=== PATIENT | female | born 1995 | race Caucasian/White ===

== ENCOUNTER 2020-06-19 11:29 | Emergency (ER) | payer OTHER, SELFPAY ==
[2020-06-19] VITALS (19 sets, daily range): BP systolic 124–149; BP diastolic 70–108; PULSE 92–109; RESP 15–23; TEMP 36.3; O2SAT 98–100
--- NOTE | ~2020-06-19 | XR_ITS ---
EXAMINATION: XR chest 1V INDICATION: Heart palpitations TECHNIQUE: PA view of the chest is obtained. COMPARISON: None available FINDINGS: There are minimal airspace opacities of the lung bases. No pleural effusion or pneumothorax is identified. The cardiomediastinal silhouette is stable. The visualized osseous structures are unr emarkable. IMPRESSION: 1. Minimal airspace opacities of the lung bases, consistent with atelectasis versus pneumonia. Reviewed, dictated and finalized at location A. L ENGINEER HELPER IMPRESSION: 1. Minimal airspace opacities of the lung bases, consistent with atelectasis ve rsus pneumonia.
--- NOTE | 2020-06-19 11:38 | ECG_ITS ---
Measurements Intervals [place] Rate: 108 P: 37 DC: 139 QRS: 2 QRSD: 86 T: 8 QT: 310 QTc: 416 Interpretive Statements SINUS TACHYCARDIA INCOMPLETE RIGHT BUNDLE BRANCH BLOCK BORDERLINE T WAVE ABNORMALITY- INFERIOR LEADS BASELINE ARTIFACT- I, V3 ABNORMAL ECG Electronically Signed On 06-19-2020 16:04:51 QUALITY INSPECTOR by Pietro Salgado D.O.
--- NOTE | 2020-06-19 12:08 | PC.NURSE ---
patient brought back to ED room 14 with c/o palpitations over the last month. see triage note. patient is alert. oriented. in room. patient is 24 weeks . has seen cardiology, OB and had labs done for these same symptoms. states her HR today has been 50-120.
[2020-06-19 12:11] LABS: Basophils Percent Auto 0.2 % (0.2-1.2); Eosinophils Absolute Auto 0.1 K/mm3 (0-0.3); Eosinophils Percent Auto 0.4 % (0-4.4); Hematocrit 32.8 % (37.0-47.0); Hemoglobin 10.8 g/dL (12.0-15.0); Immature Granulocyte Percent A 0.9 % (0-0.5); Lymphocytes Absolute Auto 1.73 K/mm3 (0.9-3.2); Lymphocytes Percent Auto 15.3 % (18.3-44.2); Mean Corpuscular HGB Conc 32.9 g/dl (32-36); Mean Corpuscular Hemoglobin 27.3 pg (26-34); Mean Corpuscular Volume 82.8 fl (80-100); Mean Platelet Volume 10.8 fl (7.4-10.4); Monocytes Absolute Auto 0.5 K/mm3 (0.1-0.6); Monocytes Percent Auto 4.3 % (2.6-8.5); Neutrophils Absolute Auto 8.9 K/mm3 (1.3-6.7); Neutrophils Percent Auto 78.9 % (45.5-73.1); Platelet Count Result 278 k/mm3 (150-375); Red Blood Count 3.96 M/mm3 (4.2-5.4); Red Cell Distribution Width 15.3 % (11.5-14.5); White Blood Count 11.3 K/mm3 (4.5-10.0)
[2020-06-19 12:17] LABS: Anion Gap 11 mmol/L (8-16); Blood Urea Nitrogen 7 mg/dL (7-17); Calcium 8.8 mg/dL (8.4-10.2); Carbon Dioxide 21 mmol/L (22-30); Chloride 106 mmol/L (98-107); Estimated CRCL calculation 149 ml/min; Estimated Glomerular Filt Rate > 60; Glucose 150 mg/dL (65-105); Potassium 4.1 mmol/L (3.4-5.0); Sodium 138 mmol/L (137-145)
[2020-06-19 12:18] LABS: INR 0.9; Prothrombin Time 12.4 Seconds (11.1-14.7)
[2020-06-19 12:19] LABS: Partial Thromboplastin Time 26.7 SECONDS (22.3-36.8)
[2020-06-19 12:29] LABS: Troponin I < 0.012 ng/mL (0.000-0.034)
--- NOTE | 2020-06-19 12:33 | ED.ARRPALP ---
HPI - Arrhythmia/Palpitations General Chief Complaint: Arrhythmia/Palpitations Stated Complaint: heart palpations 24 weeks Time Seen by Provider: 06/19/20 12:09 Source: patient Mode of arrival: ambulatory Limitations: no limitations History of Present Illness HPI narrative: Patient is a 25-year-old female complaining palpitations that started approximately 2 weeks ago. Patient states that she is 24 weeks . Patient states that she has seen her SHEARING SHED HAND for this and was referred to a vacuum kettle cook and currently on a Holter monitor. Patient denies any chest pain or shortness of breath. Patient denies any abdominal pain, nausea vomiting, diarrhea. Patient denies any vaginal bleeding or discharge. Related Data Home Medications Medication Instructions Recorded Confirmed levothyroxine [Synthroid] 88 mcg PO DAILY 08/01/19 08/01/19 aspirin [Adult Low Dose Aspirin] PO DAILY 06/19/20 multivit 99-avdt-rmjuce 1-dha cap PO DAILY 06/19/20 [Zatean-Pn DHA] Allergies Allergy/AdvReac Type Severity Reaction Status Date / Time No Known Allergies Allergy Verified 06/19/20 11:43 Review of Systems Review of Systems: All systems reviewed & are unremarkable except as noted in HPI and below Constitutional: Constitutional: Denies body ache(s), Denies chills, Denies excessive sweating, Denies fatigue, Denies fever(s), Denies headache(s), Denies lethargy, Denies malaise, Denies weakness and Denies weight loss Eyes: Eyes: Denies blurry vision, Denies change in vision and Denies loss of vision ENT: Denies dizziness, Denies ear discharge, Denies headache(s), Denies lip swelling, Denies epistaxis, Denies nasal congestion, Denies neck pain, Denies throat swelling and Denies tongue swelling Cardiovascular: Cardiovascular: Denies chest pain, Denies chest pain at rest, Denies chest pain with activity, Denies diaphoresis, Denies edema, Denies irregular heart rhythm, Denies lightheadedness, Denies dyspnea and Denies dyspnea on exertion Respiratory: Respiratory: Denies chest congestion, Denies cough, Denies hemoptysis, Denies dyspnea and Denies dyspnea on exertion Gastrointestinal: Gastrointestinal: Denies abdominal pain, Denies melena, Denies hematochezia, Denies diarrhea, Denies nausea, Denies vomiting and Denies hematemesis Musculoskeletal: Musculoskeletal: Denies abnormal gait, Denies deformity, Denies joint swelling, Denies limited range of motion, Denies neck pain and Denies numbness Neurologic: Denies Abnormal speech present, Denies abnormal gait, Denies confusion, Denies dizziness, Denies headache(s), Denies focal weakness, Denies loss of vision, Denies numbness, Denies Other visual disturbances, Denies Sensory deficit (Neuro) and Denies weakness Psychiatric: Psychiatric: Denies confusion, Denies depression, Denies auditory hallucinations, Denies homicidal ideation and Denies suicidal ideation Endocrine: Endocrine: Denies cold intolerance, Denies excessive sweating, Denies fatigue, Denies heat intolerance and Denies palpitations Hematologic/Lymphatic: Hematologic/Lymphatic: Denies easy bleeding and Denies easy bruising Allergic/Immunologic: Allergic/Immunologic: Denies lip swelling, Denies throat swelling and Denies tongue swelling PMFSH Surgical History Surgical History History of tonsillectomy Family History Family History Grandparent Diabetes mellitus Father Hypertension Mother Hypertension Social History Social History Smoking status: Never smoker Alcohol intake: current Additional 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
[2020-06-19] MEDS: SODIUM CHLORIDE 0.9% IV 1,000 ML 999 ML IV CONT (12:56)
[2020-06-19] MEDS: ASPIRIN 81 MG CHEWABLE TABLET 324 MG PO (12:57)
--- NOTE | 2020-06-19 13:04 | PC.NURSE ---
SL inserted. IVF started ASA given. patient with EKG on her apple watch shows ventricular bigeminy.
--- NOTE | 2020-06-19 13:05 | PC.NURSE ---
Called chem, added on TSH Reflex [id number]
[2020-06-19 14:40] LABS: Troponin I < 0.012 ng/mL (0.000-0.034)
== END 2020-06-19 14:47 | disposition home or self-care (01) ==
PROVIDERS: Emergency Medicine; Emergency Provider Emergency Medicine; PCP Internal Medicine
DX: O26.892 Other specified pregnancy related conditions, second trimester (principal); R00.2 Palpitations; R00.0 Tachycardia, unspecified; O99.282 Endocrine, nutritional and metabolic diseases complicating pregnancy, second trimester; E03.9 Hypothyroidism, unspecified; Z79.82 Long term (current) use of aspirin; Z3A.24 24 weeks gestation of pregnancy
CPT/HCPCS: 36415; 71045; 80048; 84443; 84484; 85025; 85610; 85730; 93005; 96360; 96361; 99284; A9270; J7030

== ENCOUNTER → 2021-07-27 08:03 | Outpatient (CLI) | payer OTHER, SELFPAY ==
--- NOTE | ~2021-07-27 | US_ITS ---
EXAMINATION: US thyroid DATE: 07/27/2021 08:19 INDICATION: Nontoxic single thyroid nodule. TECHNIQUE: Multiple ultrasound images of the thyroid were obtained. COMPARISON: None. FINDINGS: The right thyroid lobe measures 4.3 x 1.3 x 1.4 cm. The left thyroid lobe measures 3.3 x 1.1 x 1.1 c m. There is normal echotexture and echogenicity throughout the thyroid gland. No discrete nodules id entified. Normal vascular flow is present. IMPRESSION: 1. Normal thyroid. Reviewed, dictated and finalized at location A. LITY MECHANIC IMPRESSION: 1. Normal thyroid.
== END ==
DX: E04.1 Nontoxic single thyroid nodule (principal)
CPT/HCPCS: 76536

== ENCOUNTER → 2022-03-10 08:20 | Outpatient (CLI) | payer OTHER, SELFPAY ==
--- NOTE | ~2022-03-10 | CT_ITS ---
EXAMINATION: CT abdomen pelvis wo con DATE: 03/10/2022 08:37 INDICATION: Abdominal pain TECHNIQUE: Computed tomography (CT) of the abdomen and pelvis was performed without intravenous contr ast. The dose-length product (DLP) was 1112.93 mGy-cm. Automated exposure control and iterative recon struction technique were employed. COMPARISON: None FINDINGS: The lung bases are clear. The heart size is normal. The liver, spleen, pancreas, gallbladde r, and adrenal glands are normal. The kidneys are unremarkable. No pathologically enlarged abdominal or pelvic lymph nodes are identified. There is no free intraperitoneal gas or evidence of bowel obstr uction. The appendix is normal. IMPRESSION: 1. No CT correlate for the patient's symptoms. Reviewed, dictated and finalized at location L.
== END ==
PROVIDERS: PCP Family Medicine; Visit Provider Family Medicine
DX: R10.9 Unspecified abdominal pain (principal)
CPT/HCPCS: 74176

== ENCOUNTER 2022-05-13 20:58 | Emergency (ER) | payer OTHER, SELFPAY ==
[2022-05-13] VITALS (7 sets, daily range): BP systolic 126–149; BP diastolic 79–100; PULSE 74–97; RESP 16–24; TEMP 36.5; O2SAT 98–100
--- NOTE | ~2022-05-13 | XR_ITS ---
EXAMINATION: XR chest 2V DATE: 05/13/2022 21:48 INDICATION: Chest discomfort TECHNIQUE: PA and lateral views of the chest were obtained. COMPARISON: Chest radiograph dated 08/29/2019 FINDINGS: The lungs are clear with no focal airspace opacities, pulmonary edema, pleural effusion or pneumothor ax. The cardiomediastinal silhouette is normal. Visualized bones and soft tissues are unremarkable. IMPRESSION: 1. Normal chest radiograph. Reviewed, dictated and finalized at location A. IMPRESSION: 1. Normal chest radiograph.
--- NOTE | ~2022-05-13 | CT_ITS ---
EXAMINATION: CTA chest PE protocol DATE: 05/13/2022 23:16 INDICATION: center chest discomfort, D-dimer elevated 2.29, SOB w/ exert TECHNIQUE: Computed tomography angiography (CTA) of the chest was performed with 100 mL Omnipaque-350 intravenous contrast timed to evaluate the pulmonary arteries. Coronal maximum intensity projection 3D-reconstructions were created by the technologist. The dose-length product (DLP) was 723.05 mGy-cm. Automated exposure control and iterative reconstruction technique were employed. COMPARISON: None. FINDINGS: Lung parenchyma and airways: Clear. Pleura: Unremarkable. Thoracic inlet, axillae and chest wall: Unremarkable. Thoracic aorta: Normal. Mediastinum: Normal. Heart and pericardium: Normal. Coronary artery calcifications: Absent. Upper abdomen: No significant finding. Bones: No acute osseous finding. Pulmonary arteries: Study quality: Adequate. No pulmonary emboli detected. IMPRESSION: No CT evidence of acute pulmonary embolus. Reviewed, dictated and finalized at location K.
--- NOTE | ~2022-05-13 | CT_ITS ---
EXAMINATION: CT brain wo con DATE: 05/13/2022 21:48 INDICATION: Intermittent dizziness. Hypertension and blurred vision. TECHNIQUE: Computed tomography (CT) of the head was performed without intravenous contrast. Sagittal and coronal reconstructions were performed. Automated exposure control and iterative reconstruction t echnique were employed. The dose-length product was 605.33 mGy-cm. COMPARISON: None FINDINGS: No acute intracranial hemorrhage, acute infarction or abnormal extra axial fluid collection. Ventricl es are normal and symmetric. No mass/mass effect. Mild mucosal thickening the left ethmoid sinus. The orbits and mastoid air cells are normal. IMPRESSION: 1. Normal brain. No acute intracranial process. Reviewed, dictated and finalized at location A.
--- NOTE | 2022-05-13 21:01 | ECG_ITS ---
Measurements Intervals [place] Rate: 88 P: 37 DE: 161 QRS: -4 QRSD: 97 T: 11 QT: 336 QTc: 407 Interpretive Statements SINUS RHYTHM INCOMPLETE RIGHT BUNDLE BRANCH BLOCK COMPARED TO ECG 06/19/2020 11:48:33 SINUS RHYTHM NOW PRESENT Electronically Signed On 05-14-2022 17:43:31 CDT by Juliana Meadows M.D.
[2022-05-13 21:23] LABS: Basophils Percent Auto 0.5 % (0.2-1.2); Eosinophils Absolute Auto 0.1 K/mm3 (0-0.3); Eosinophils Percent Auto 2.4 % (0-4.4); Hematocrit 39.7 % (37.0-47.0); Hemoglobin 12.3 g/dL (12.0-15.0); Immature Granulocyte Absolute 0.01 K/mm3 (0.00-0.031); Immature Granulocyte Percent A 0.2 % (0-0.5); Lymphocytes Absolute Auto 1.63 K/mm3 (0.9-3.2); Lymphocytes Percent Auto 39.4 % (18.3-44.2); Mean Corpuscular Hemoglobin 23.6 pg (26-34); Mean Corpuscular Volume 76.1 fl (80-100); Monocytes Absolute Auto 0.4 K/mm3 (0.1-0.6); Monocytes Percent Auto 9.2 % (2.6-8.5); Neutrophils Percent Auto 48.3 % (45.5-73.1); Platelet Count Result 235 k/mm3 (150-375); Red Blood Count 5.22 M/mm3 (4.2-5.4); Red Cell Distribution Width 15.7 % (11.5-14.5); White Blood Count 4.1 K/mm3 (4.5-10.0)
--- NOTE | 2022-05-13 21:23 | ED.GENADULT ---
HPI - General Adult General Chief complaint: Recheck/Abnormal Lab/Rx Stated complaint: high blood pressure, chest discomfort Time Seen by Provider: 05/13/22 21:15 Source: RN notes reviewed History of Present Illness HPI narrative: Patient presents emergency department from home for hypertension. Patient states that she has been regularly checking her blood pressure at home and noted it was elevated today. States that with her elevated blood pressure she has been having some intermittent episodes of chest tightness in the midsternal chest states she is also been having some dizziness as well and has headache she states that she did take Tylenol earlier today for the symptoms with no relief of her headache states she does not have a history of hypertension but her readings have been regular running higher she denies any fevers or chills vision changes numbness or tingling in the extremities abdominal pain nausea vomiting she states she does have some mild shortness of breath with exertion Related Data Home Medications Medication Instructions Recorded Confirmed levothyroxine 88 mcg tablet 88 mcg PO DAILY 08/01/19 08/01/19 (Synthroid) multivitamin no.47-iron fum 27 cap PO DAILY 06/19/20 mg-folate no.1 1 mg-dha 300 mg capsule (Zatean-Pn DHA) Allergies Allergy/AdvReac Type Severity Reaction Status Date / Time No Known Allergies Allergy Verified 05/13/22 22:19 Review of Systems Review of Systems: Gen.: Denies fevers or chills Eyes: Denies eye pain or visual change ENT: Denies congestion Respiratory: Reports shortness of breath with exertion denies cough CV: See HPI GI: Denies abdominal pain nausea, emesis or diarrhea Musculoskeletal: Denies back pain or muscle pain Neuro: Headache and dizziness Skin: Denies rash Except as documented, all other systems reviewed and negative [facility] Past Medical History Medical History (Updated 05/14/22 @ 01:23 by Aiden Steve DO) Patient denies significant medical history Surgical History Surgical History History of tonsillectomy Family History Family History Grandparent Diabetes mellitus Father Hypertension Mother Hypertension Social History Social History Smoking status: Never smoker Alcohol intake: current Alcohol use details: Occasional 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 No clubbing, cyanosis or edema. NEURO: A and O ?3, following commands, speech normal, facial droop,muscle strength 5 out of 5 bilateral upper and lower extremities SKIN:: Warm, dry. Normal Color PSYCHIATRIC: Normal affect/mood Course Course Emergency Course: Patient states she is feeling better at this time blood pressures have remained within normal range throughout stay in the ED discussed with patient keeping a blood pressure log and following up with her PCP Discussed with patient results of workup and diagnosis. Discussed need for follow-up with primary care, proper use of medication, and reasons to return to the emergency department. Patient understands and agrees to current treatment plan Vital Signs Vital signs: Vital Signs Temperature 97.7 F 05/13/22 21:07 Pulse Rate 97 05/13/22 21:07 Respiratory Rate 20 05/13/22 21:0
[2022-05-13 21:32] LABS: Alanine Aminotransferase 38 U/L (6-35); Albumin Level 4.4 g/dL (3.5-5.1); Alkaline Phosphatase 122 U/L (38-126); Anion Gap 10 mmol/L (8-16); Aspartate Amino Transferase 43 U/L (14-36); Bilirubin,Total 0.3 mg/dL (0.2-1.3); Blood Urea Nitrogen 13 mg/dL (7-17); Calcium 9.1 mg/dL (8.4-10.2); Carbon Dioxide 27 mmol/L (22-30); Chloride 102 mmol/L (98-107); Estimated CRCL calculation 111 ml/min; Estimated Glomerular Filt Rate > 60; Glucose 133 mg/dL (65-110); Lipase 113 U/L (23-300); Potassium 3.8 mmol/L (3.4-5.0); Sodium 139 mmol/L (137-145)
[2022-05-13 21:34] LABS: Partial Thromboplastin Time 30.5 SECONDS (22.3-36.8)
[2022-05-13 21:44] LABS: Troponin I < 0.012 ng/mL (0.000-0.034)
[2022-05-13 22:07] LABS: D Dimer 2.29 ug/mL (<0.48)
[2022-05-13] MEDS: KETOROLAC 30 MG/ML VIAL (*BKC) IV PUSH (22:17)
[2022-05-13] MEDS: SODIUM CHLORIDE 0.9% IV 1,000 ML 999 ML IV CONT (22:17)
[2022-05-13 22:29] LABS: Appearance Urine Clear (Clear); Bilirubin Urine Negative (Negative); Blood Urine 1+ (Negative); Color Urine Yellow (Yellow); Glucose Urine UA Negative (Negative); Ketones Urine Trace mg/dL (Negative); Leukocyte Esterase Ur Negative LEU/UL (Negative); Nitrate Urine Negative (Negative); Protein Urine Negative (Negative); Specific Grav Ur 1.025 (1.001-1.035); Urobilinogen Urine 0.2 mg/dL (<2.0)
[2022-05-13 22:31] LABS: Bacteria Urine Trace /hpf; Mucus Urine Rare /lpf; Squamous Epithelial Cell Urine Occasional /hpf (Few); WBC Urine 0-3 /hpf
[2022-05-13 22:33] LABS: Add Urine Microscopic? YES
--- NOTE | 2022-05-13 23:45 | PC.NURSE ---
Report given to NIESHA Kolb.
[2022-05-14 01:12] LABS: Troponin I < 0.012 ng/mL (0.000-0.034)
[2022-05-14 01:30] VITALS: BP 122/83; PULSE 67; RESP 21; O2SAT 100
== END 2022-05-14 01:25 | disposition home or self-care (01) ==
PROVIDERS: Emergency Provider Emergency Medicine; PCP Family Medicine
DX: I10 Essential (primary) hypertension (principal); R51.9 Headache, unspecified; R07.89 Other chest pain; I45.10 Unspecified right bundle-branch block
CPT/HCPCS: 36415; 70450; 71046; 71275; 80053; 81001; 81025; 83690; 84484; 85025; 85380; 85610; 85730; 93005; 96361; 96374; 99284; J1885; J7030; Q9967

== ENCOUNTER 2023-09-06 14:47 | Emergency (ER) | payer OTHER, SELFPAY ==
--- NOTE | 2023-09-06 14:49 | ED.GENADULT ---
HPI - General Adult General Chief complaint: Ear Stated complaint: Thrush in mouth Time Seen by Provider: 09/06/23 15:10 Source: patient, RN notes reviewed and old records reviewed Mode of arrival: ambulatory Limitations: no limitations History of Present Illness HPI narrative: 28-year-old female presents to the [facility] with concerns of having thrush in her mouth. Denies any use of antibiotics, inhalers. Denies any contacts with anyone with thrush. Patient states that she went to her primary care office and was tested for flu and COVID this morning, was not evaluated by her primary care provider. Patient reports a sore tongue with a white patch just on her posterior tongue, nothing in the buccal area, cheeks or roof of mouth. Denies any fevers. Onset (ago): day(s) (1) Treatments prior to arrival: none Related Data Allergies Allergy/AdvReac Type Severity Reaction Status Date / Time No Known Allergies Allergy Verified 09/06/23 14:54 Review of Systems Review of Systems: All systems reviewed & are unremarkable except as noted in HPI and below Constitutional: Constitutional: Reports no additional constitutional complaints Eyes: Eyes: Reports no additional eye complaints ENT: Reports as per HPI Cardiovascular: Cardiovascular: Reports no additional cardiovascular complaints, Denies chest pain and Denies dyspnea Respiratory: Respiratory: Reports no additional respiratory complaints, Denies chest congestion, Denies cough and Denies dyspnea Gastrointestinal: Gastrointestinal: Reports no additional gastrointestinal complaints, Denies abdominal pain, Denies nausea and Denies vomiting Musculoskeletal: Musculoskeletal: Reports no additional musculoskeletal complaints Integumentary/Breasts: Skin/Breast: Reports system reviewed and no additional complaints, except as docu Neurologic: Reports system reviewed and no additional complaints, except as documented Psychiatric: Psychiatric: Reports no additional psychiatric complaints Allergic/Immunologic: Allergic/Immunologic: Reports no additional allergic/immunologic complaints [facility] Past Medical History Medical History Patient denies significant medical history Surgical History Surgical History History of tonsillectomy Family History Family History Grandparent Diabetes mellitus Father Hypertension Mother Hypertension Social History Social History (Reviewed 09/06/23 @ 17:36 by RAFAEL Garrison Smoking status: Never smoker Alcohol intake: current Alcohol use details: Occasional Occupation/Education: occupation 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 There is no relevant family history pertinent to the patient complaint. Exam Const: General: cooperative, healthy appearing, comfortable, no acute distress, well developed, alert and well nourished Nutritional Appearance: well nourished Orientation/consciousness: patient oriented x3 Limitations: no limitations HENMT: Head: normal to inspection Ears: hearing grossly normal bilaterally, external ears normal, TM's normal bilaterally, EAC's normal, mastoids normal and no periauricular adenopathy Face/Nose/Sinus: Normal external nose present, Normal nares present, Normal nasal mucous membranes and turbinates present, normal facial exam and face symmetric Face and sinus: normal facial exam and face symmetric Mouth: Yes Normal oral and palatal mucosa present, Yes lip normal, Yes moist mucous membranes and Yes tongue abnormal with white coating (Posterior tongue); not elevated, not edematous, not lacerated, not ecchymotic an
[2023-09-06 15:01] VITALS: BP 122/86; PULSE 93; RESP 16; TEMP 36.8; O2SAT 100
== END 2023-09-06 15:37 | disposition home or self-care (01) ==
PROVIDERS: Emergency Provider Nurse Practitioner
DX: K14.3 Hypertrophy of tongue papillae (principal)
CPT/HCPCS: 87081; 87880; 99213; G0463

== ENCOUNTER 2024-03-22 19:55 | Emergency (ER) | payer OTHER, SELFPAY ==
--- NOTE | ~2024-03-22 | XR_ITS ---
EXAMINATION: XR chest 2V DATE: 03/22/2024 20:27 INDICATION: Chest pain. TECHNIQUE: Frontal and lateral views of the chest were obtained. COMPARISON: Chest single view 06/22/2022, chest CT 05/13/2022 FINDINGS: There is no pneumonia, pleural effusion, or pneumothorax. The heart size is normal. IMPRESSION: 1. No acute cardiopulmonary disease. Reviewed, dictated and finalized at location E.
--- NOTE | 2024-03-22 20:08 | ECG_ITS ---
Test Date: 2024-03-22 20:05:10 Measurements Intervals [place] Rate: 78 P: 40 CT: 169 QRS: -5 QRSD: 102 T: 13 QT: 350 QTc: 400 Interpretive Statements SINUS RHYTHM INCOMPLETE RIGHT BUNDLE BRANCH BLOCK [90+ ms QRS DURATION, TERMINAL R IN V1/V2, 40+ ms S IN I/aVL/V4/V5/V6] POSSIBLE ANTERIOR MYOCARDIAL INFARCTION , PROBABLY OLD [30 ms Q WAVE IN V3/V4, OR R < 0.2 mV IN V4] No previous ECG available for comparison Electronically Signed On 03-23-2024 13:42:50 CDT by Hung Wiggins M.D.
[2024-03-22 20:11] VITALS: BP 138/90; PULSE 86; RESP 20; TEMP 36.1; O2SAT 100
[2024-03-22 20:17] LABS: Basophils Percent Auto 0.4 % (0.2-1.2); Eosinophils Absolute Auto 0.1 K/mm3 (0-0.3); Eosinophils Percent Auto 0.9 % (0-4.4); Hematocrit 40.8 % (37.0-47.0); Hemoglobin 13.2 g/dL (12.0-15.0); Immature Granulocyte Absolute 0.03 K/mm3 (0.00-0.031); Immature Granulocyte Percent A 0.3 % (0-0.5); Lymphocytes Absolute Auto 2.52 K/mm3 (0.9-3.2); Lymphocytes Percent Auto 26.6 % (18.3-44.2); Mean Corpuscular HGB Conc 32.4 g/dl (32-36); Mean Corpuscular Hemoglobin 26.4 pg (26-34); Mean Corpuscular Volume 81.6 fl (80-100); Monocytes Absolute Auto 0.5 K/mm3 (0.1-0.6); Monocytes Percent Auto 5.7 % (2.6-8.5); Neutrophils Absolute Auto 6.3 K/mm3 (1.3-6.7); Neutrophils Percent Auto 66.1 % (45.5-73.1); Platelet Count Result 273 k/mm3 (150-375); Red Cell Distribution Width 13.1 % (11.5-14.5); White Blood Count 9.5 K/mm3 (4.5-10.0)
[2024-03-22 20:28] LABS: Prothrombin Time 13.3 Seconds (11.1-14.7)
[2024-03-22 20:29] LABS: Partial Thromboplastin Time 28.4 Seconds (22.3-36.8)
[2024-03-22 20:31] LABS: Alanine Aminotransferase 17 U/L (6-35); Albumin Level 4.4 g/dL (3.5-5.1); Alkaline Phosphatase 81 U/L (38-126); Anion Gap 10 mmol/L (4-12); Aspartate Amino Transferase 24 U/L (14-36); Bilirubin,Total 0.2 mg/dL (0.2-1.3); Blood Urea Nitrogen 16 mg/dL (7-17); Calcium 9.2 mg/dL (8.4-10.2); Carbon Dioxide 27 mmol/L (22-30); Chloride 101 mmol/L (98-107); Estimated CRCL calculation 94 ml/min; Estimated Glomerular Filt Rate > 60; Glucose 73 mg/dL (65-110); Lipase 128 U/L (23-300); Potassium 3.6 mmol/L (3.4-5.0); Sodium 138 mmol/L (137-145)
[2024-03-22 20:42] LABS: Troponin I < 0.012 ng/mL (0.000-0.034)
[2024-03-22 22:22] VITALS: BP 113/79; PULSE 73; RESP 18; TEMP 36.1; O2SAT 96
[2024-03-23 00:03] VITALS: BP 111/90; PULSE 69; RESP 20; O2SAT 98
[2024-03-23 00:06] VITALS: O2SAT 98
[2024-03-23 00:14] LABS: Troponin I < 0.012 ng/mL (0.000-0.034)
--- NOTE | 2024-03-23 00:53 | ED.CHESTPAIN ---
HPI - Chest Pain General Chief Complaint: Chest Pain Stated Complaint: dizzy Time Seen by Provider: 03/22/24 23:18 History of Present Illness HPI narrative: Patient with history of long COVID, occasional palpitations, presents here with episode of palpitations, with HR in 130s; took a xanax she is prescribed. Feeling better now that she's here. Related Data Allergies Allergy/AdvReac Type Severity Reaction Status Date / Time No Known Allergies Allergy Verified 03/23/24 00:08 Review of Systems Review of Systems: All systems reviewed & are unremarkable except as noted in HPI and below PMFSH Past Medical History Medical History Patient denies significant medical history Surgical History Surgical History History of tonsillectomy Family History Family History Grandparent Diabetes mellitus Father Hypertension Mother Hypertension Social History Social History Smoking status: Never smoker Alcohol intake: current Alcohol use details: Occasional Occupation/Education: occupation 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 EYES: EOMI, conjunctiva normal ENT: Hearing grossly intact LUNGS: Nonlabored breathing. HEART: [Regular rate and rhythm] ABD: No distension EXT: Normal range of motion SKIN: [No rashes or lesions.] NEURO: [Alert and oriented x 3. No gross focal sensory or strength deficits.] PSYCH: Normal affect Course Vital Signs Vital signs: Vital Signs Temperature 97.0 F L 03/22/24 20:11 Pulse Rate 86 03/22/24 20:11 Respiratory Rate 20 03/22/24 20:11 Blood Pressure 138/90 03/22/24 20:11 Pulse Oximetry 100 03/22/24 20:11 Oxygen Delivery Room Air 03/22/24 20:11 Temperature 97.0 F L 03/22/24 22:22 Pulse Rate 69 08/11/24 00:03 Respiratory Rate 20 03/23/24 00:03 Blood Pressure 111/90 03/23/24 00:03 Pulse Oximetry 98 03/23/24 00:06 Oxygen Delivery Room Air 03/23/24 00:06 MDM - Chest Pain MDM Narrative Medical decision making narrative: ED COURSE AND MEDICAL DECISION MAKINF presenting with episode of palpitations. EKG done in triage negative for acute ischemic changes. Cardiac workup is initiated. EKG: Performed in triage and interpreted by me. Normal sinus rhythm. Rate [78]. Normal axis. LA normal. QRS duration normal. QTc normal. No pathologic Q waves. No ST segment elevation or depression to suggest acute ischemia. No RV strain pattern. HEART score is 0 with no acute ischemic changes on EKG and negative troponin making ACS unlikely. Negative PERC making PE unlikely. Presentation not consistent with dissection or aneurysm without radiation of pain or pulse deficits. CXR negative for mediastinal widening. No abdominal pain or signs of sepsis that would be concerning for esophageal perforation or mediastinitis. No cardiomegaly or JVD to suggest pericardial effusion/tamponade. HEART Score: 0. (Risk of major adverse cardiac events over 6 weeks: Score of 0-3 is low risk <2% ; Score of 4-6 is moderate risk ~12-15%; Score of 7-12 is high risk ~50%). - History - [0]. (Not suspicious 0; moderately suspicious 1; highly suspicious 2). - EKG - [0]. (No ST changes 0; non-specific ST/T changes 1; ST depression 2). - Age - [0]. (<45 = 0; 46-65 = 1; >65 = 2). - Risk factors - [0]. (0 factors = 0; 1-2 factors = 1; >2 factors = 2). - Troponin - [0]. (Normal = 0; Indeterminate = 1; High = 2). On repeat evaluation just prior to discharge, the patient is no acu
[2024-03-23 00:56] VITALS: BP 114/80; PULSE 78; RESP 20; TEMP 36.8; O2SAT 99
== END 2024-03-23 00:58 | disposition home or self-care (01) ==
PROVIDERS: Emergency Provider Emergency Medicine
DX: R00.2 Palpitations (principal); Z79.899 Other long term (current) drug therapy
CPT/HCPCS: 36415; 71046; 80053; 83690; 84484; 85025; 85610; 85730; 93005; 99284

== ENCOUNTER 2024-03-24 14:52 | Emergency (ER) | payer OTHER, SELFPAY ==
--- NOTE | 2024-03-24 16:24 | PC.NURSE ---
Pt states I decided to go home RN encouraged pt to stay, pt refuses. RN instructed to return if symptoms worsen
== END 2024-03-24 16:24 | disposition left against medical advice (07) ==
DX: Z53.21 Procedure and treatment not carried out due to patient leaving prior to being seen by health care provider (principal)
CPT/HCPCS: 99199

== ENCOUNTER 2024-03-26 09:55 | Emergency (ER) | payer OTHER, SELFPAY ==
--- NOTE | ~2024-03-26 | CT_ITS ---
EXAMINATION: CT abdomen pelvis w con DATE: 03/26/2024 12:38 INDICATION: Pain in the abdomen, chest, and left shoulder. Dizziness. TECHNIQUE: Computed tomography (CT) of the abdomen and pelvis was performed with 100 mL Omnipaque 350 intravenous contrast. Automated exposure control and iterative reconstruction technique were employe d. The dose-length product was 1212.78 mGy-cm. COMPARISON: CT abdomen and pelvis 03/10/2022 FINDINGS: The visualized portions of the lung bases are clear without pneumonia or pleural effusion. The heart size is normal. No pericardial effusion. There is a 4 mm cyst in the liver. The gallbladder is normal. There is a 6 mm cyst in the spleen. The pancreas and adrenal glands are normal. There are striated nephrograms, consistent with pyelonephritis. There are no dilated loops of bowel. There is liquid stool in the colon suggesting diarrhea. The appendix is normal. There are no dilated loops of bowel. There are no pathologically enlarged lymph nodes. There is an umbilical hernia containing fat. There is no ascites. The bones are unremarkable. IMPRESSION: 1. Striated nephrograms of the kidneys. This finding may be seen with pyelonephritis or infarcts. Reviewed, dictated and finalized at location A. IMPRESSION: 1. Striated nephrograms of the kidneys. This finding may be seen with pyeloneph ritis or infarcts.
[2024-03-26 09:56] VITALS: BP 142/94; PULSE 90; RESP 20; TEMP 36.4; O2SAT 100
--- NOTE | 2024-03-26 11:19 | ECG_ITS ---
Test Date: 2024-03-26 12:00:28 Measurements Intervals [place] Rate: 86 P: 39 MS: 162 QRS: 5 QRSD: 102 T: 18 QT: 354 QTc: 425 Interpretive Statements SINUS RHYTHM INCOMPLETE RIGHT BUNDLE BRANCH BLOCK [90+ ms QRS DURATION, TERMINAL R IN V1/V2, 40+ ms S IN I/aVL/V4/V5/V6] Compared to ECG 03/22/2024 20:05:10 No significant changes Electronically Signed On 03-26-2024 13:04:58 CDT by Juliana Meadows M.D.
--- NOTE | 2024-03-26 11:19 | PC.NURSE ---
Patient complains of chest discomfort and out of control heart rate for the past few days and was set up to see her it support analyst today but then woke up with GI upset (nausea, vomiting, diarrhea). patient states that she had covid exposure but home tests result negative.
--- NOTE | 2024-03-26 11:31 | ED.NAVMDI ---
HPI - Nausea/Vomiting/Diarrhea General Chief complaint: Nausea/Vomiting/Diarrhea Stated complaint: DIZZINESS Time Seen by Provider: 03/26/24 11:29 Source: patient and family Mode of arrival: ambulatory History of Present Illness HPI Narrative: 29 years old white female workup this morning with upper abdominal pain, sharp, intermittent associated with nausea and vomiting twice. Later started feeling dizzy, left chest discomfort radiating to left shoulder resolved in few minutes, patient denies any fever, chills, vaginal bleeding or discharge, history of section, depression, anxiety, patient does not smoke or drink, taking magnesium supplement for history of palpitation, currently patient main complaint is general aches possible COVID exposure Related Data Allergies Allergy/AdvReac Type Severity Reaction Status Date / Time No Known Allergies Allergy Verified 03/23/24 00:08 Review of Systems Review of Systems: All systems reviewed & are unremarkable except as noted in HPI and below PMFSH Past Medical History Medical History Patient denies significant medical history Surgical History Surgical History History of tonsillectomy Family History Family History Grandparent Diabetes mellitus Father Hypertension Mother Hypertension Social History Social History Smoking status: Never smoker Alcohol intake: current Alcohol use details: Occasional Occupation/Education: occupation Additional occupation/education comments: 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 Musculoskeletal: Normal range of motion, nontender back Neurologic: Alert and oriented ?3, CARPENTER PROTOTYPE is normal as tested, no gross motor deficit Course Consultations Consultation #1: Dr. Solano, vascular surgeon at [facility] who accepted patient transferred Date: 03/26/24 Time: 15:05 Consultation #2: Dr. Humphries, hospitalist at [facility] who accepted patient transfer Date: 03/26/24 Time: 15:06 Consultation #3: Dr mims Requested to transfer patient to another facility Date: 03/26/24 Vital Signs Vital signs: Vital Signs Temperature 36.4 C 03/26/24 09:56 Pulse Rate 90 03/26/24 09:56 Respiratory Rate 20 03/26/24 09:56 Blood Pressure 142/94 H 03/26/24 09:56 Pulse Oximetry 100 03/26/24 09:56 Oxygen Delivery Room Air 03/26/24 09:56 Temperature 37.2 C 03/26/24 14:45 Pulse Rate 94 03/26/24 15:43 Respiratory Rate 18 03/26/24 15:43 Blood Pressure 118/81 03/26/24 15:43 Pulse Oximetry 100 03/26/24 15:43 Oxygen Delivery Room Air 03/26/24 09:56 MDM - Nausea/Vomiting/Diarrhea MDM Narrative Medical decision making narrative: Patient came to the ED with multiple symptoms including abdominal pain, flank pain, chest pain, tachycardia, diaphoresis, headache Vital signs on arrival stable Physical examination showed slight tenderness left flank area Differential diagnosis inclu
[2024-03-26] MEDS: SODIUM CHLORIDE 0.9% IV 2,000 ML 999 ML IV CONT (11:52)
[2024-03-26] MEDS: ONDANSETRON INJ 4 MG/2 ML VIAL 8 MG IV PUSH (11:52)
[2024-03-26 11:53] LABS: Basophils Percent Auto 0.2 % (0.2-1.2); Eosinophils Absolute Auto 0.1 K/mm3 (0-0.3); Eosinophils Percent Auto 0.4 % (0-4.4); Hematocrit 48.3 % (37.0-47.0); Hemoglobin 15.7 g/dL (12.0-15.0); Immature Granulocyte Absolute 0.04 K/mm3 (0.00-0.031); Immature Granulocyte Percent A 0.3 % (0-0.5); Lymphocytes Absolute Auto 0.56 K/mm3 (0.9-3.2); Lymphocytes Percent Auto 4.4 % (18.3-44.2); Mean Corpuscular HGB Conc 32.5 g/dl (32-36); Mean Corpuscular Hemoglobin 26.6 pg (26-34); Mean Corpuscular Volume 81.9 fl (80-100); Monocytes Absolute Auto 0.4 K/mm3 (0.1-0.6); Monocytes Percent Auto 3.1 % (2.6-8.5); Neutrophils Absolute Auto 11.6 K/mm3 (1.3-6.7); Neutrophils Percent Auto 91.6 % (45.5-73.1); Platelet Count Result 285 k/mm3 (150-375); Red Cell Distribution Width 13.1 % (11.5-14.5); White Blood Count 12.6 K/mm3 (4.5-10.0)
[2024-03-26 12:01] LABS: Appearance Urine Clear (Clear); Bilirubin Urine Negative (Negative); Blood Urine Negative (Negative); Color Urine Yellow (Yellow); Glucose Urine UA Negative (Negative); Ketones Urine 1+ mg/dL (Negative); Leukocyte Esterase Ur Trace LEU/UL (Negative); Nitrate Urine Negative (Negative); Protein Urine Negative (Negative); Specific Grav Ur 1.024 (1.001-1.035); Urobilinogen Urine 0.2 mg/dL (<2.0)
[2024-03-26 12:02] LABS: Add Urine Microscopic? YES; Bacteria Urine 1+ /hpf; Non Pathogenic Casts 0-2; Squamous Epithelial Cell Urine Few /hpf (Few); WBC Urine 0-5 /hpf (0-3)
[2024-03-26 12:03] LABS: Alanine Aminotransferase 22 U/L (6-35); Albumin Level 5.3 g/dL (3.5-5.1); Alkaline Phosphatase 105 U/L (38-126); Anion Gap 15 mmol/L (4-12); Aspartate Amino Transferase 28 U/L (14-36); Bilirubin,Total 0.5 mg/dL (0.2-1.3); Blood Urea Nitrogen 13 mg/dL (7-17); Calcium 9.7 mg/dL (8.4-10.2); Carbon Dioxide 25 mmol/L (22-30); Chloride 100 mmol/L (98-107); Estimated Glomerular Filt Rate > 60; Glucose 108 mg/dL (65-110); Lipase 117 U/L (23-300); Potassium 4.1 mmol/L (3.4-5.0); Sodium 140 mmol/L (137-145)
[2024-03-26 12:05] VITALS: BP 119/77; PULSE 99; RESP 18; O2SAT 100
[2024-03-26 12:15] LABS: Pregnancy On Board Control Positive; Urine Pregnancy Test Negative
--- NOTE | 2024-03-26 12:17 | PC.NURSE ---
Pt educated on medication prescribed and she declines the dilaudid at this time stating that she doesn't feel that she is in that much pain.
[2024-03-26 14:33] LABS: SARS-CoV-2 RNA PCR Negative (Negative)
[2024-03-26] MEDS: ACETAMINOPHEN 500 MG TABLET 1000 MG PO (14:41)
[2024-03-26 14:45] VITALS: BP 127/87; PULSE 104; RESP 17; TEMP 37.2; O2SAT 99
[2024-03-26] MEDS: LORazepam INJ (*CRX) 2 MG/ML VIAL 1 MG IV PUSH (15:18)
[2024-03-26 15:43] VITALS: BP 118/81; PULSE 94; RESP 18; O2SAT 100
[2024-03-26 15:56] LABS: INR 0.9; Prothrombin Time 12.7 Seconds (11.1-14.7)
[2024-03-26 15:57] LABS: Partial Thromboplastin Time 27.7 Seconds (22.3-36.8)
--- NOTE | 2024-03-26 16:32 | PC.NURSE ---
Addendum entered by Ana Quispe RN 03/26/24 16:42: Patient report called to [facility] at this time. Spoke with Carmella SCHERER, and stated would call back at [phone] when patient leaves our department. Original Note: Patient report called to [facility] at this time. Spoke with Carmella SCHERER, and stated would call back at [phone]
[2024-03-26] MEDS: HEPARIN SOD/D5W 100 UNITS/ML 25,000 UNITS/250 ML BAG 14 UNITS IV CONT (17:46)
[2024-03-26] MEDS: HEPARIN SODIUM 5,000 UNITS/ML VIAL 6000 UNITS IV PUSH (17:47)
--- NOTE | 2024-03-26 18:21 | PC.NURSE ---
Called and Spoke with Carmella SCHERER at this time to let her know that the patient was enroute to them at this time.
[2024-03-26 18:22] VITALS: BP 114/76; PULSE 93; RESP 18; TEMP 37.2; O2SAT 100
== END 2024-03-26 18:27 | disposition short-term general hospital (02) ==
PROVIDERS: Emergency Provider Emergency Medicine
DX: R10.9 Unspecified abdominal pain (principal); N28.0 Ischemia and infarction of kidney
CPT/HCPCS: 36415; 74177; 80053; 81001; 81025; 83690; 85025; 85610; 85730; 87635; 93005; 96361; 96365; 96375; 99285; A9270; J1644; J2060; J2405; J7030; Q9967

== ENCOUNTER 2025-02-14 15:27 | Emergency (ER) | payer OTHER, SELFPAY ==
--- NOTE | ~2025-02-14 | XR_ITS ---
EXAMINATION: XR chest 2V Exam Date/Time: 02/14/2025 16:25 CDT HISTORY: weakness AND DIZZINESS X 2 DAYS Comparison: 03/22/2024. RESULT: Lines, tubes, and devices: None. Lungs and pleura: Clear. Cardiomediastinal silhouette: Stable. Other: No acute osseous or upper abdominal finding. IMPRESSION: No acute cardiopulmonary process. Reviewed, dictated and finalized at location K.
--- OUTSIDE RECORDS SUMMARY | 2025-02-14 15:30 | XMS_ITS | Continuity of Care Document ---
Author Name [facility] Address [address] [place] [address] Organization [facility] Care Team Providers Care Fitter Type Bar And Segment Name Role Phone [facility] Unavailable Unavailable Problems Problem Status Onset Date Problem Type Date of Resolution Comments Source Thyroid nodule (disorder) Active Condition Hyperthyroidism (disorder) Active Condition
--- OUTSIDE RECORDS SUMMARY | 2025-02-14 15:30 | XMS_ITS | Clinical Summary ---
Author Organization [facility] Address [address], [facility] [address] [place] [address] Phone Care Team Providers Care Substation Operator Conversion Name Role Phone Pantera Campbell MD Unavailable Unavailable Allergies No known active allergies Medications Estradiol Valerate-Dienog est (NATAZIA) 3/2-2/2-3/1 MG Tablet Take by mouth. Activ e Prenat w/o C-LW-Jqlhxsa-FA -DHA (Zatean-Pn DHA) 27-0.6-0.4-300 MG Capsule 0 Active Synthroid 88 MCG TabletIndicatio ns:Hypothyroidi sm (acquired),Nont oxic single thyroid nodule 1tab PO QD with only water 1st thing in AM at least 45' AC breakfast 90 Tablet 1 1 Active Active Problems Problem Noted Date Diagnosed Date Hyperlipidemia 08/13/2019 Hypothyroidism (acquired) 01/10/2018 Nontoxic single thyroid nodule 01/10/2018 Weight gain 12/12/2016 Dermatitis 12/12/2016 Resolved Problems Problem Noted Date Diagnosed Date Resolved Date Urine frequency 03/28/2017 03/28/2017 Immunizations Immunization Administration Dates Next Due Influenza Vaccine 05/17/2017 TDAP Vaccine 08/14/2016 Family History Medical History Relation Name Comments Hypertension Father High Cholesterol Mother Cancer Paternal Grandfather Colon Hypertension Paternal Grandmother Relation Name Status Comments Father Alive Mother Alive Paternal Grandfather Paternal Grandmother Social History Tobacco Use Types Packs/Day Years Used Date Smoking Tobacco: Never Smokeless Tobacco: Never Tobacco Cessation:Counseling Given: Yes Alcohol Use Standard Drinks/Week Comments Yes 0 (1 standard drink = 0.6 oz pur e alcohol) occasionally PHQ-2 Answer Date Recorded Total Score - Questions 1-9 0 09/2019 Comments Unknown Sex and Gender Information Value Date Recorded Sex Assigned at Not on file Legal Sex Female 10:43 PM CDT Gender Identity Not on file Sexual Orientation Not on file 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 Not on file Not on file Not on file Last Filed Vital Signs Vital Sign Reading Time Taken Comments Blood Pressure 110/72 06/25/2020 2:28 PM [employer] Pulse 100 06/25/2020 2:28 PM [employer] Temperature 36.6 C (97.9 F) 06/25/2020 2:28 PM [employer] Respiratory Rate 18 06/25/2020 2:28 PM [employer] Oxygen Saturation 98% 06/25/2020 2:28 PM [employer] Inhaled Oxygen Concentration - - Weight 116.6 kg (257 lb) 06/25/2020 2:28 PM [employer] Height 167.6 cm (5' 6) 06/25/2020 2:28 PM [employer] Body Mass Index 41.48 06/25/2020 2:28 PM [employer]NAGER [employer] Plan of Treatment Health Maintenance Due Date Last Done Comments Human Papillomavirus (HPV) Immunization (1 - 3-dose series) 02/19/2008 Hepatitis B Immunization (1 of 3 - 19+ 3-dose series) 02/19/2012 Pap Smear 2014 Cervical Cancer Screening (CCS) 2023 HPV/Cotest 2023 SARS-COV-2 Immunization ( season) 2024 08/16/2021, 12/08/2020, 11/17/2020 Influenza Immunization (#1) 2025 05/17/2017 Td Immunization Every 10 Yea rs (Adults With 1 Tdap) 08/14/2026 08/14/2016 Respiratory Syncytial Virus (RSV) Immunization (Adult) (1 - 1-dose 75+ series) 02/19/2068 Hepatitis C Virus (HCV) Screening Completed 02/19/2020 Meningococcal Immunization (ACWY) Aged Out No longer eligible b ased on patient's age to complete this topic Pneumococcal Immunization Combined Aged Out No longer eligible b ased on patient's age to complete this topic Rotavirus Immunization Aged Out No lo nger eligible based on patient's age to complete this topic Care Teams Substation Operator Conversion Relationship Specialty Start Date End Date Pantera Campbell MD Consulting Physician Obstetrics & Gynecology 12/04/18
--- OUTSIDE RECORDS SUMMARY | 2025-02-14 15:30 | XMS_ITS | Patient Health Record ---
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 Name Role Phone Mae Collins PA-C Primary Care Provider Chandra Christy Unavailable [phone] Allergies No Known Allergies Reason For Referral No Information Medications Medication SIG (Take, Route, Frequency, Duration) Notes Start Date End Date Status Magnesium *Pick strength-form from [employer] for eRX* 10/22/2023 Active ALPRAZolam 0.25 MG 1 tablet Oral once a day; Duration: 30 days 11/18/2024 Active Zepbound 2.5 MG/0.5ML 0.5 mL Subcutaneous Active Immunizations Vaccine Route Administration Date Status Comme nts COVID-19 (SARS-COV-2) vaccin e, unspecified Unknown 12/11/2020 Administered Social History Tobacco Use: Social History Observation Description Date Details (start date - stop date) Never Smoker NA - NA Sex Assigned At : Social History Observation Description Sex Assigned At Female Tobacco Control (Standard) Question Answer Notes Tobacco use: Nonsmoker Problems Problem Type SNOMED Code ICD Code Onset Dates Problem Status W/U Status Risk Notes Problem Hypothyroidism (78064777) Other specified hypothyroidism (E03.8) Active confirmed Problem Generalized anxiety disorder (90879731) Generalized anxiety disorder (F41.1) 10/22/19 Active confirmed Problem History of endocrine disorder (798544244) Personal history of other endocrine, nutritional and metabolic disease (Z86.39) 10/22/19 Active confirmed Problem Panic disorder [episodic paroxysmal anxiety] without agoraphobia (F41.0) 10/22/19 24 Active confirmed Problem Polycystic ovary syndrome (disorder) (294175273) PCOS (polycystic ovarian syndrome) (E28.2) Active confirmed Vital Signs Heart Rate 75 /min 11/18/2024 Height-cm 165.10 cm 11/18/2024 Blood pressure diastolic 82 mm Hg 11/18/2024 Weight-kg 91.63 kg 11/18/2024 Height 65.00 in 11/18/2024 Blood pressure systolic 116 mm Hg 11/18/2024 Weight 202 lbs 11/18/2024 BMI 33.61 kg/m2 11/18/2024 Encounters Encounter Location Date Provider Diagnosis [address] [address] 02/21/2024 Chandra Murrieta Generalized anxiety disorder F41.1 ; Panic disorder [episodic paroxysmal anxiety] without agoraphobia F41.0 ; Personal history of other endocrine, nutritional and metabolic disease Z86.39 and Other specified hypothyroidism E03.[address] [address] 07/14/2024 Chandra Murrieta Generalized anxiety disorder F41.1 ; Panic disorder [episodic paroxysmal anxiety] without agoraphobia F41.0 ; Personal history of other endocrine, nutritional and metabolic disease Z86.39 ; Other specified hypothyroidism E03.8 ; Elevated vitamin B12 level R79.89 and PCOS (polycystic ovarian syndrome) E28.[address] [address] 10/07/2024 Chandra Murrieta [address] [address] 11/18/2024 Chandra Murrieta Encounter for screen ing for depression Z13.31 ; Encounter for screening for cardiovascular disorders Z13.6 ; Generalized anxiety disorder F41.1 ; Panic disorder [episodic paroxysmal anxiety] without agoraphobia F41.0 ; Personal history of other endocrine, nutritional and metabolic disease Z86.39 ; Other specified hypothyroidism E03.8 ; Elevated vitamin B12 level R79.89 and PCOS (polycystic ovarian syndrome) E28.[address] [address] 06/09/2024 Chandra Murrieta Assessments Encounter Date Diagnosis (ICD Code) Assessment Notes Treatment Notes Treatment Clinical Notes Section Notes 02/21/2024 Generalized anxiety disorder (ICD-10 - F41.1) Test Name: [facility] Venipuncture ([facility] )Test Date: 6386-03-54Jodvvdyf Venipucture Performed: YesTest Name: Apolipoprotein A-1Test Date: 2226-44-06Skhwfxxc rotein A-1: 137 mg/dLTest Name: Apolipoprotein BTest Date: 6990-18-72Osvkwbda rotein B: 112 mg/dLTest Name: CBC with DifferentialTest Date: 2532-28-22WKE: 26.3 pg (Low)MCHC: 31.4 g/dL (Low)Test Name: Comprehensive Metabolic PanelTest Date: 5239-05-89Afp results within normal range.Test Name: CortisolTest Date: 4837-62-06Zgcflvkl : 5.1Test Name: CRP, High SensitivityTest Date: 4866-67-65E-Reacti ve Protein, high sensitivity: 11.47 mg/L (High)Test Name: DHEA SulfateTest Date: 6069-09-35OSEN-Sul fate: 275Test Name: EstradiolTest Date: 5073-25-63Bzejnczc l: 45.9 pg/mLTest Name: FerritinTest Date: 9730-02-06Kcxyezci : 33.0 ng/mLTest Name: Follicle Stimulating Hormone (FSH)Test Date: 4870-63-18ORB: 7.5Test Name: Growth HormoneTest Date: 9700-07-44Htgxrs Hormone: <0.1Test Name: Hemoglobin Z7vLrnr Date: 0707-63-71Smjukbwy in A1c: 5.4%Test Name: Human Sex Hormone Binding GlobulinTest Date: 9093-18-95Hgz Hormone Binding Globulin: 24.7Test Name: Insulin Like Growth Factor-1Test Date: 6344-55-43Shmqufpw Like Growth Factor: 217 ng/mLTest Name: Iron LevelTest Date: 7118-71-81Iept: 59Test Name: Lipid Panel(AMA) w/LDL CalculatedTest Date: 0781-84-04JFS Cholesterol: 105 mg/dL (High)Triglyceride s: 185 mg/dL (High)Test Name: Luteinizing Hormone (LH)Test Date: 4483-67-68NQ: 11.5Test Name: Magnesium LevelTest Date: 8445-70-45Qqpqvzhi m: 2.0 mg/dLTest Name: ProgesteroneTest Date: 9177-54-43Pwgbjrqg sol: 0.13 ng/mLTest Name: T3, FreeTest Date: 8228-29-87A7, Free: 2.79 pg/mLTest Name: T4, FreeTest Date: 6456-69-18H3, Free: 0.67 ng/dLTest Name: Testosterone, FreeTest Date: 2229-26-81Dbfdpjql sol Free: 5.5 pg/mL (High)Test Name: Testosterone, TotalTest Date: 9067-28-13Jyxroxbn sol, Total: 54 ng/dLTest Name: TSHTest Date: 4590-57-89ZFJ: 4.81Test Name: US Soft Tissue NeckTest Date: 0739-01-99Kittjdis : Negative examTest Name: US ThyroidTest Date: 2709-87-60Oylvsyss : Normal thyroid ultrasound. No thyroid nodules are identified on this examination.Test Name: Vitamin Z11Igil Date: 4665-31-42Bypkrjj B12: 352 pg/mLTest Name: Vitamin D 25-HydroxyTest Date: 1485-17-14Oierogo D, 25-Hydroxy, Total: 33.7 ng/mL 1. Anxiety and Panic Disorder - Patient reports managing anxiety symptoms and recognizing panic attacks. Xanax usage has decreased, with only two instances in January. The patient has not refilled the prescription since the last visit. - Plan: Continue current management strategies. Encourage the patient to consider counseling when financially feasible. Monitor anxiety symptoms and Xanax usage during follow-up visits. 2. Health Anxiety - Patient continues to experience health anxiety but is managing day-to-day functioning. - Plan: Encourage the patient to discuss health concerns with their healthcare provider and consider counseling for additional support. 3. Hypothyroidism - Patient reports persistent fatigue and recent abnormal thyroid labs from a women's clinic. Previous thyroid ultrasound was normal, and TSH on 11-12-23 was 2.600. - Plan: Order a new TSH lab test for the patient to recheck thyroid levels. Review results and adjust treatment as necessary during the follow-up visit. 4. Hyperlipidemia - Patient's cholesterol and triglycerides were reported to be slightly elevated during the previous visit. - Plan: Encourage the patient to maintain a healthy diet and exercise routine. Reevaluate lipid levels during future visits and consider medication if necessary. 5. Follow-up - Plan: Schedule a follow-up appointment in four months to monitor the patient's anxiety, panic disorder, hypothyroidism, and hyperlipidemia. Review TSH lab results and discuss any necessary adjustments to the treatment plan. 07/14/2024 Generalized anxiety disorder (ICD-10 - F41.1) 1. Internal shaking and tremors - Plan: Reevaluate after stopping the compounded tirzepatide. Consider starting propranolol 10 mg twice a day for akathisia. Monitor response and side effects. 2. Anxiety - Plan: Continue alprazolam as needed for anxiety management. Encourage non-pharmacologica l anxiety management techniques. 3. Elevated vitamin B12 - Plan: Recheck vitamin B12 level in one month. Investigate potential causes of elevated B12 if still high without supplementation. Follow-up - Plan: Schedule follow-up appointment in one month. Review lab results and adjust treatment plan as needed. 11/18/2024 Encounter for screening for depression (ICD-10 - Z13.31) 11/18/2024 Encounter for screening for cardiovascular disorders (ICD-10 - Z13.6) 07/14/2024 Panic disorder [episodic paroxysmal anxiety] without agoraphobia (ICD-10 - F41.0) 1. Internal shaking and tremors - Plan: Reevaluate after stopping the compounded tirzepatide. Consider starting propranolol 10 mg twice a day for akathisia. Monitor response and side effects. 2. Anxiety - Plan: Continue alprazolam as needed for anxiety management. Encourage non-pharmacologica l anxiety management techniques. 3. Elevated vitamin B12 - Plan: Recheck vitamin B12 level in one month. Investigate potential causes of elevated B12 if still high without supplementation. Follow-up - Plan: Schedule follow-up appointment in one month. Review lab results and adjust treatment plan as needed. 02/21/2024 Panic disorder [episodic paroxysmal anxiety] without agoraphobia (ICD-10 - F41.0) Test Name: [facility] Venipuncture ([facility] )Test Date: 3937-71-35Rhdzlpyl Venipucture Performed: YesTest Name: Apolipoprotein A-1Test Date: 3451-84-57Xsyzvnop rotein A-1: 137 mg/dLTest Name: Apolipoprotein BTest Date: 7993-76-16Wlegmwpj rotein B: 112 mg/dLTest Name: CBC with DifferentialTest Date: 6782-25-33AIL: 26.3 pg (Low)MCHC: 31.4 g/dL (Low)Test Name: Comprehensive Metabolic PanelTest Date: 8523-12-51Lol results within normal range.Test Name: CortisolTest Date: 7494-56-73Fabjzkyg : 5.1Test Name: CRP, High SensitivityTest Date: 0692-79-75M-Reacti ve Protein, high sensitivity: 11.47 mg/L (High)Test Name: DHEA SulfateTest Date: 7681-33-37JYIJ-Sul fate: 275Test Name: EstradiolTest Date: 9483-71-57Fnfpftjf l: 45.9 pg/mLTest Name: FerritinTest Date: 2012-13-97Tngukodh : 33.0 ng/mLTest Name: Follicle Stimulating Hormone (FSH)Test Date: 9653-78-82EZO: 7.5Test Name: Growth HormoneTest Date: 8297-78-10Znkskc Hormone: <0.1Test Name: Hemoglobin F9qKhwz Date: 8415-02-02Erwonklz in A1c: 5.4%Test Name: Human Sex Hormone Binding GlobulinTest Date: 7623-33-34Mjy Hormone Binding Globulin: 24.7Test Name: Insulin Like Growth Factor-1Test Date: 7152-70-36Uxclegyg Like Growth Factor: 217 ng/mLTest Name: Iron LevelTest Date: 6856-81-10Mddi: 59Test Name: Lipid Panel(AMA) w/LDL CalculatedTest Date: 6539-98-80FEI Cholesterol: 105 mg/dL (High)Triglyceride s: 185 mg/dL (High)Test Name: Luteinizing Hormone (LH)Test Date: 9339-62-23FP: 11.5Test Name: Magnesium LevelTest Date: 3930-06-62Ujjfgscu m: 2.0 mg/dLTest Name: ProgesteroneTest Date: 3308-98-02Vaobmcwp sol: 0.13 ng/mLTest Name: T3, FreeTest Date: 7247-28-83J5, Free: 2.79 pg/mLTest Name: T4, FreeTest Date: 0511-55-04T1, Free: 0.67 ng/dLTest Name: Testosterone, FreeTest Date: 2371-45-28Ibqilzoh sol Free: 5.5 pg/mL (High)Test Name: Testosterone, TotalTest Date: 1172-60-09Tszfvxin sol, Total: 54 ng/dLTest Name: TSHTest Date: 7398-22-87DOI: 4.81Test Name: US Soft Tissue NeckTest Date: 5155-71-67Oekhmdls : Negative examTest Name: US ThyroidTest Date: 1649-02-07Embbiyvo : Normal thyroid ultrasound. No thyroid nodules are identified on this examination.Test Name: Vitamin H73Bxmh Date: 7380-08-34Yslseyp B12: 352 pg/mLTest Name: Vitamin D 25-HydroxyTest Date: 9826-20-36Wwhzrcr D, 25-Hydroxy, Total: 33.7 ng/mL 1. Anxiety and Panic Disorder - Patient reports managing anxiety symptoms and recognizing panic attacks. Xanax usage has decreased, with only two instances in January. The patient has not refilled the prescription since the last visit. - Plan: Continue current management strategies. Encourage the patient to consider counseling when financially feasible. Monitor anxiety symptoms and Xanax usage during follow-up visits. 2. Health Anxiety - Patient continues to experience health anxiety but is managing day-to-day functioning. - Plan: Encourage the patient to discuss health concerns with their healthcare provider and consider counseling for additional support. 3. Hypothyroidism - Patient reports persistent fatigue and recent abnormal thyroid labs from a women's clinic. Previous thyroid ultrasound was normal, and TSH on 11-12-23 was 2.600. - Plan: Order a new TSH lab test for the patient to recheck thyroid levels. Review results and adjust treatment as necessary during the follow-up visit. 4. Hyperlipidemia - Patient's cholesterol and triglycerides were reported to be slightly elevated during the previous visit. - Plan: Encourage the patient to maintain a healthy diet and exercise routine. Reevaluate lipid levels during future visits and consider medication if necessary. 5. Follow-up - Plan: Schedule a follow-up appointment in four months to monitor the patient's anxiety, panic disorder, hypothyroidism, and hyperlipidemia. Review TSH lab results and discuss any necessary adjustments to the treatment plan. 02/21/2024 Personal history of other endocrine, nutritional and metabolic disease (ICD-10 - Z86.39) Test Name: [facility] Venipuncture ([facility]//[facility]/PH )Test Date: 2095-93-16Qzwlcbsp Venipucture Performed: YesTest Name: Apolipoprotein A-1Test Date: 3488-19-83Ghrsxumw rotein A-1: 137 mg/dLTest Name: Apolipoprotein BTest Date: 9270-12-27Arbqudbo rotein B: 112 mg/dLTest Name: CBC with DifferentialTest Date: 5553-77-10IEM: 26.3 pg (Low)MCHC: 31.4 g/dL (Low)Test Name: Comprehensive Metabolic PanelTest Date: 8744-38-89Nyq results within normal range.Test Name: CortisolTest Date: 3464-40-34Bkxjbpaf : 5.1Test Name: CRP, High SensitivityTest Date: 7482-74-28W-Reacti ve Protein, high sensitivity: 11.47 mg/L (High)Test Name: DHEA SulfateTest Date: 6729-32-45VRRP-Sul fate: 275Test Name: EstradiolTest Date: 0749-51-48Pgqvpyfe l: 45.9 pg/mLTest Name: FerritinTest Date: 2530-61-99Uzvagzjn : 33.0 ng/mLTest Name: Follicle Stimulating Hormone (FSH)Test Date: 0738-59-44GUX: 7.5Test Name: Growth HormoneTest Date: 2485-70-50Htznlh Hormone: <0.1Test Name: Hemoglobin M2yCofh Date: 8739-63-41Ctohrecc in A1c: 5.4%Test Name: Human Sex Hormone Binding GlobulinTest Date: 5015-05-51Vtw Hormone Binding Globulin: 24.7Test Name: Insulin Like Growth Factor-1Test Date: 5058-72-09Kwmhzuxx Like Growth Factor: 217 ng/mLTest Name: Iron LevelTest Date: 0382-72-62Sscn: 59Test Name: Lipid Panel(AMA) w/LDL CalculatedTest Date: 2085-09-11WFX Cholesterol: 105 mg/dL (High)Triglyceride s: 185 mg/dL (High)Test Name: Luteinizing Hormone (LH)Test Date: 3926-06-05UU: 11.5Test Name: Magnesium LevelTest Date: 5381-90-04Oduqbdcp m: 2.0 mg/dLTest Name: ProgesteroneTest Date: 4946-14-64Eneapywi sol: 0.13 ng/mLTest Name: T3, FreeTest Date: 2556-42-31G2, Free: 2.79 pg/mLTest Name: T4, FreeTest Date: 1687-65-15A6, Free: 0.67 ng/dLTest Name: Testosterone, FreeTest Date: 8689-45-43Uvlsrchk sol Free: 5.5 pg/mL (High)Test Name: Testosterone, TotalTest Date: 0302-21-45Ztpivwxa sol, Total: 54 ng/dLTest Name: TSHTest Date: 6579-93-35AHN: 4.81Test Name: US Soft Tissue NeckTest Date: 8890-29-95Yjqtxaqh : Negative examTest Name: US ThyroidTest Date: 1781-39-14Mninmufv : Normal thyroid ultrasound. No thyroid nodules are identified on this examination.Test Name: Vitamin T02Rrek Date: 1690-67-85Uncuzqo B12: 352 pg/mLTest Name: Vitamin D 25-HydroxyTest Date: 2372-46-45Ffczvft D, 25-Hydroxy, Total: 33.7 ng/mL 1. Anxiety and Panic Disorder - Patient reports managing anxiety symptoms and recognizing panic attacks. Xanax usage has decreased, with only two instances in January. The patient has not refilled the prescription since the last visit. - Plan: Continue current management strategies. Encourage the patient to consider counseling when financially feasible. Monitor anxiety symptoms and Xanax usage during follow-up visits. 2. Health Anxiety - Patient continues to experience health anxiety but is managing day-to-day functioning. - Plan: Encourage the patient to discuss health concerns with their healthcare provider and consider counseling for additional support. 3. Hypothyroidism - Patient reports persistent fatigue and recent abnormal thyroid labs from a women's clinic. Previous thyroid ultrasound was normal, and TSH on 11-12-23 was 2.600. - Plan: Order a new TSH lab test for the patient to recheck thyroid levels. Review results and adjust treatment as necessary during the follow-up visit. 4. Hyperlipidemia - Patient's cholesterol and triglycerides were reported to be slightly elevated during the previous visit. - Plan: Encourage the patient to maintain a healthy diet and exercise routine. Reevaluate lipid levels during future visits and consider medication if necessary. 5. Follow-up - Plan: Schedule a follow-up appointment in four months to monitor the patient's anxiety, panic disorder, hypothyroidism, and hyperlipidemia. Review TSH lab results and discuss any necessary adjustments to the treatment plan. 07/14/2024 Personal history of other endocrine, nutritional and metabolic disease (ICD-10 - Z86.39) 1. Internal shaking and tremors - Plan: Reevaluate after stopping the compounded tirzepatide. Consider starting propranolol 10 mg twice a day for akathisia. Monitor response and side effects. 2. Anxiety - Plan: Continue alprazolam as needed for anxiety management. Encourage non-pharmacologica l anxiety management techniques. 3. Elevated vitamin B12 - Plan: Recheck vitamin B12 level in one month. Investigate potential causes of elevated B12 if still high without supplementation. Follow-up - Plan: Schedule follow-up appointment in one month. Review lab results and adjust treatment plan as needed. 11/18/2024 Generalized anxiety disorder (ICD-10 - F41.1) 11/18/2024 Panic disorder [episodic paroxysmal anxiety] without agoraphobia (ICD-10 - F41.0) 07/14/2024 Other specified hypothyroidism (ICD-10 - E03.8) 1. Internal shaking and tremors - Plan: Reevaluate after stopping the compounded tirzepatide. Consider starting propranolol 10 mg twice a day for akathisia. Monitor response and side effects. 2. Anxiety - Plan: Continue alprazolam as needed for anxiety management. Encourage non-pharmacologica l anxiety management techniques. 3. Elevated vitamin B12 - Plan: Recheck vitamin B12 level in one month. Investigate potential causes of elevated B12 if still high without supplementation. Follow-up - Plan: Schedule follow-up appointment in one month. Review lab results and adjust treatment plan as needed. 02/21/2024 Other specified hypothyroidism (ICD-10 - E03.8) Test Name: [facility] Venipuncture ([facility] )Test Date: 0176-90-47Crqhdkkr Venipucture Performed: YesTest Name: Apolipoprotein A-1Test Date: 9363-33-21Rehixpws rotein A-1: 137 mg/dLTest Name: Apolipoprotein BTest Date: 1079-09-76Hronegha rotein B: 112 mg/dLTest Name: CBC with DifferentialTest Date: 2108-46-93CHB: 26.3 pg (Low)MCHC: 31.4 g/dL (Low)Test Name: Comprehensive Metabolic PanelTest Date: 8655-35-09Amv results within normal range.Test Name: CortisolTest Date: 7979-92-34Xduwotcr : 5.1Test Name: CRP, High SensitivityTest Date: 4793-96-31Z-Reacti ve Protein, high sensitivity: 11.47 mg/L (High)Test Name: DHEA SulfateTest Date: 5146-93-96YUVJ-Sul fate: 275Test Name: EstradiolTest Date: 8711-16-33Ocxavnec l: 45.9 pg/mLTest Name: FerritinTest Date: 9200-03-81Losqznoi : 33.0 ng/mLTest Name: Follicle Stimulating Hormone (FSH)Test Date: 9399-30-17CIF: 7.5Test Name: Growth HormoneTest Date: 6492-60-01Eshtql Hormone: <0.1Test Name: Hemoglobin F1aWqgh Date: 7112-65-72Isgkqrsr in A1c: 5.4%Test Name: Human Sex Hormone Binding GlobulinTest Date: 3000-48-30Ixu Hormone Binding Globulin: 24.7Test Name: Insulin Like Growth Factor-1Test Date: 5336-57-29Shvbmerm Like Growth Factor: 217 ng/mLTest Name: Iron LevelTest Date: 5661-11-53Bnhw: 59Test Name: Lipid Panel(AMA) w/LDL CalculatedTest Date: 8589-63-55UJI Cholesterol: 105 mg/dL (High)Triglyceride s: 185 mg/dL (High)Test Name: Luteinizing Hormone (LH)Test Date: 7447-85-29SL: 11.5Test Name: Magnesium LevelTest Date: 4400-90-81Ccdxqawp m: 2.0 mg/dLTest Name: ProgesteroneTest Date: 4222-57-64Ayiomzmq sol: 0.13 ng/mLTest Name: T3, FreeTest Date: 1309-77-42D2, Free: 2.79 pg/mLTest Name: T4, FreeTest Date: 0132-60-26G1, Free: 0.67 ng/dLTest Name: Testosterone, FreeTest Date: 8776-62-15Xcuxhrib sol Free: 5.5 pg/mL (High)Test Name: Testosterone, TotalTest Date: 5530-48-18Kjjqipbh sol, Total: 54 ng/dLTest Name: TSHTest Date: 0798-67-07UUM: 4.81Test Name: US Soft Tissue NeckTest Date: 7201-07-68Nedyzufd : Negative examTest Name: US ThyroidTest Date: 9528-12-83Yqbuoyeg : Normal thyroid ultrasound. No thyroid nodules are identified on this examination.Test Name: Vitamin G21Xapx Date: 4147-89-65Xsaefzb B12: 352 pg/mLTest Name: Vitamin D 25-HydroxyTest Date: 9614-36-66Ykbffkj D, 25-Hydroxy, Total: 33.7 ng/mL 1. Anxiety and Panic Disorder - Patient reports managing anxiety symptoms and recognizing panic attacks. Xanax usage has decreased, with only two instances in January. The patient has not refilled the prescription since the last visit. - Plan: Continue current management strategies. Encourage the patient to consider counseling when financially feasible. Monitor anxiety symptoms and Xanax usage during follow-up visits. 2. Health Anxiety - Patient continues to experience health anxiety but is managing day-to-day functioning. - Plan: Encourage the patient to discuss health concerns with their healthcare provider and consider counseling for additional support. 3. Hypothyroidism - Patient reports persistent fatigue and recent abnormal thyroid labs from a women's clinic. Previous thyroid ultrasound was normal, and TSH on 11-12-23 was 2.600. - Plan: Order a new TSH lab test for the patient to recheck thyroid levels. Review results and adjust treatment as necessary during the follow-up visit. 4. Hyperlipidemia - Patient's cholesterol and triglycerides were reported to be slightly elevated during the previous visit. - Plan: Encourage the patient to maintain a healthy diet and exercise routine. Reevaluate lipid levels during future visits and consider medication if necessary. 5. Follow-up - Plan: Schedule a follow-up appointment in four months to monitor the patient's anxiety, panic disorder, hypothyroidism, and hyperlipidemia. Review TSH lab results and discuss any necessary adjustments to the treatment plan. 11/18/2024 Personal history of other endocrine, nutritional and metabolic disease (ICD-10 - Z86.39) 07/14/2024 Elevated vitamin B12 level (ICD-10 - R79.89) 1. Internal shaking and tremors - Plan: Reevaluate after stopping the compounded tirzepatide. Consider starting propranolol 10 mg twice a day for akathisia. Monitor response and side effects. 2. Anxiety - Plan: Continue alprazolam as needed for anxiety management. Encourage non-pharmacologica l anxiety management techniques. 3. Elevated vitamin B12 - Plan: Recheck vitamin B12 level in one month. Investigate potential causes of elevated B12 if still high without supplementation. Follow-up - Plan: Schedule follow-up appointment in one month. Review lab results and adjust treatment plan as needed. 11/18/2024 Other specified hypothyroidism (ICD-10 - E03.8) 07/14/2024 PCOS (polycystic ovarian syndrome) (ICD-10 - E28.2) 1. Internal shaking and tremors - Plan: Reevaluate after stopping the compounded tirzepatide. Consider starting propranolol 10 mg twice a day for akathisia. Monitor response and side effects. 2. Anxiety - Plan: Continue alprazolam as needed for anxiety management. Encourage non-pharmacologica l anxiety management techniques. 3. Elevated vitamin B12 - Plan: Recheck vitamin B12 level in one month. Investigate potential causes of elevated B12 if still high without supplementation. Follow-up - Plan: Schedule follow-up appointment in one month. Review lab results and adjust treatment plan as needed. 11/18/2024 Elevated vitamin B12 level (ICD-10 - R79.89) 11/18/2024 PCOS (polycystic ovarian syndrome) (ICD-10 - E28.2) 11/18/2024 Other Justa Brown, female patient with history of anxiety, presents for follow-up reporting improvement in symptoms since last visit in July, with occasional akathisia and anxiety. 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 She no longer feels like her body wants to freak out as much. Patient uses Xanax as needed for air travel, with last use in August and plans to use again for upcoming flight in November. BuSpar is kept as a security blanket and used as needed. Patient has been engaging in complementary therapies such as acupuncture, which she reports as helpful. Plan: - Continue BuSpar as needed for anxiety - Refill Xanax prescription for use during air travel - Patient aware of appropriate use for specific anxiety-provoki ng situations - Encourage continuation of acupuncture and other stress-reductio n techniques that patient finds helpful Akathisia Assessment: Patient reports improvement in previously severe akathisia symptoms. Currently experiences occasional akathisia upon waking or when dozing off, but symptoms dissipate throughout the day. This is a significant improvement from the constant akathisia previously experienced. Patient mentions a history of high vitamin B12 levels, which may have contributed to symptoms. Plan: - Continue to monitor akathisia symptoms - No specific medication changes or additions at this time given symptom improvement Medication Management Assessment: Patient did not initiate propranolol as previously prescribed due to concerns about side effects. Patient switched from tirzepatide to Zepbound, possibly due to concerns about B12 levels in the compounded medication. Plan: - Discontinue propranolol order as patient has not initiated and does not wish to start - Continue Zepbound as current weight management medication - Educate patient on importance of discussing medication concerns before discontinuing or changing medications the note is transcribed using speech recognition software. It is a reflection of a visit with the patient. It might have some inaccuracy, including medication names and transcribing errors, though efforts have been made to correct them. Plan Of Treatment Future Test Test Name Order Date TSH (899) 02/21/2024 ESTROGENS, FRACTIONATED, LC/MS (87217) 1 09/14/2023 TSH+FREE T4 (30440) 07/14/2024 INSULIN (561) 07/14/2024 VITAMIN B12/FOLATE, SERUM PANEL (7065) 1 09/14/2023 T3, FREE (86041) 07/14/2024 TESTOSTERONE, FREE ([id number]) 07/14/2024 Next Appt Details Provider Name:Chandra newman, 03/17/2025 04:30:00 PM, [address], [facility] [address], [place], [address], Insurance Providers Payer Name Payer Address Payer Phone Subscriber Number Group Number Insured Name Patient Relationship to Insured Coverage Start Date Coverage End Date A[employer] [address] [place] [address] [id number] ANSELMO MCDONALD Spouse - patient is the spouse of the insured Medical (General) History Medical History History ICD Code Problems: Abnormal uterine bleeding Generalized anxiety disorder History of hypothyroidism Lightheadedness Loss of hair Obesity Panic disorder , Surgical History Surgery Date(Month/Year) Tonsilectomy/adenoids 08/13/2011 Other 09/03/2020
[2025-02-14 15:31] VITALS: BP 129/87; PULSE 104; RESP 18; TEMP 36.4; O2SAT 100
[2025-02-14] MEDS: SODIUM CHLORIDE 0.9% IV 1,000 ML 999 ML (16:04)
[2025-02-14 16:11] VITALS: BP 124/83; BP 131/91; BP 137/97; PULSE 85; PULSE 86; PULSE 90
[2025-02-14 16:12] LABS: BEDSIDEPREGUCG Negative (Negative)
[2025-02-14 16:20] LABS: Hematocrit 41.3 % (37.0-47.0); Hemoglobin 13.2 g/dL (12.0-15.0); Immature Granulocyte Percent A 0.2 % (0-0.5); Lymphocytes Absolute Auto 2.39 K/mm3 (0.9-3.2); Mean Corpuscular HGB Conc 32.0 g/dl (32-36); Mean Corpuscular Hemoglobin 26.0 pg (26-34); Mean Corpuscular Volume 81.5 fl (80-100); Nucleated Red Blood Cells Absolute Auto 0.000 K/mm3 (0.0-0.012); Nucleated Red Blood Cells Perc 0.0 % (0.0-0.2); Platelet Count Result 273 k/mm3 (150-375); Red Blood Count 5.07 M/mm3 (4.2-5.4); White Blood Count 9.1 K/mm3 (4.5-10.0)
[2025-02-14 16:25] LABS: Add Urine Microscopic? NO; Appearance Urine Clear (Clear); Glucose Urine UA Negative (Negative); Leukocyte Esterase Ur Negative LEU/UL (Negative); Nitrate Urine Negative (Negative); Specific Grav Ur 1.006 (1.001-1.035)
[2025-02-14 16:31] LABS: Alanine Aminotransferase 16 U/L (6-35); Albumin Level 4.3 g/dL (3.5-5.1); Alkaline Phosphatase 80 U/L (38-126); Anion Gap 9 mmol/L (4-12); Aspartate Amino Transferase 25 U/L (14-36); Bilirubin,Total 0.2 mg/dL (0.2-1.3); Blood Urea Nitrogen 12 mg/dL (7-17); Calcium 9.3 mg/dL (8.4-10.2); Carbon Dioxide 27 mmol/L (22-30); Chloride 104 mmol/L (98-107); Estimated CRCL calculation 92 ml/min; Estimated Glomerular Filt Rate > 60; Glucose 96 mg/dL (65-110); Potassium 3.5 mmol/L (3.4-5.0); Sodium 140 mmol/L (137-145); Total Protein 7.7 g/dL (6.3-8.2)
[2025-02-14 16:37] LABS: Influenza A QL RT-PCR Negative (Negative); Influenza B QL RT-PCR Negative (Negative); RSV RNA, RT-PCR Negative (Negative); SARS-CoV-2 RNA PCR Negative (Negative)
[2025-02-14 17:01] VITALS: BP 132/74; PULSE 80; RESP 16; TEMP 36.6; O2SAT 100
--- OUTSIDE RECORDS SUMMARY | 2025-02-14 17:46 | XMS_ITS | Clinical Summary ---
Author Organization [facility] Address [address], [facility] [address] [place] [address] Phone Care Team Providers Care Metal Sander Name Role Phone Pantera Campbell MD Unavailable Unavailable Allergies No known active allergies Medications Estradiol Valerate-Dienog est (NATAZIA) 3/2-2/2-3/1 MG Tablet Take by mouth. Activ e Prenat w/o D-BV-Vshnols-FA -DHA (Zatean-Pn DHA) 27-0.6-0.4-300 MG Capsule 0 [...] Comments Blood Pressure 110/72 06/25/2020 2:28 PM ZONE MANAGER Pulse 100 06/25/2020 2:28 PM ZONE MANAGER Temperature 36.6 C (97.9 F) 06/25/2020 2:28 PM ZONE MANAGER Respiratory Rate 18 06/25/2020 2:28 PM ZONE MANAGER Oxygen Saturation 98% 06/25/2020 2:28 PM ZONE MANAGER Inhaled Oxygen Concentration - - Weight 116.6 kg (257 lb) 06/25/2020 2:28 PM ZONE MANAGER Height 167.6 cm (5' 6) 06/25/2020 2:28 PM ZONE MANAGER Body Mass Index 41.48 06/25/2020 2:28 PM ZONE MANAGER Plan of Treatment Health Maintenance Due Date [...] age to complete this topic Care Teams Metal Sander Relationship Specialty Start Date End Date Pantera Campbell MD Consulting Physician Obstetrics & Gynecology 12/04/18
--- OUTSIDE RECORDS SUMMARY | 2025-02-14 17:46 | XMS_ITS | Continuity of Care Document ---
Author Name [facility] Address [address] [place] [address] Organization [facility] Care Team Providers Care Gospel Singer Name Role Phone [facility] Unavailable Unavailable Problems Problem Status Onset Date Problem Type Date of Resolution Comments Source Thyroid nodule (disorder) Active Condition Hyperthyroidism (disorder) Active Condition
--- OUTSIDE RECORDS SUMMARY | 2025-02-14 17:46 | XMS_ITS | Referral Summary ---
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 (Primary Dx); History of hypothyroidism; Nutritional counseling; Vaccine counseling; Anxiety; Disrupted sleep-wake cycle 12/02/2024 Telephone [facility] Family Medicine [address] [address] Mae Collins PA Prior Auth Request for Zepbound from Last 3 Months Allergies No known active allergies Medications multivit-min/fe rrous fumarate (MULTI VITAMIN ORAL) Take by mouth Active magnesium gluconate 200 mg tabletIndicatio ns:hypomagnesem ia 1 tablet (200 mg total) Active ALPRAZolam (XANAX) 0.25 mg tablet Take 1 tablet (0.25 mg total) by mouth nightly as needed for anxiety Active cyclobenzaprine (FLEXERIL) 10 mg tablet Take 1 tablet (10 mg total) by mouth nightly as needed for muscle spasms 30 tablet 1 05/29/2024 Active tirzepatide, weight loss, (Zepbound) 7.5 mg/0.5 mL pen injectorIndicat ions:Weight Loss Management for Obese Patient (BMI >= 30) Inject 0.5 mL (7.5 mg total) under the skin every 7 days 6 mL 12/23/2024 Active ferrous sulfate ER 324 mg (65 mg iron) EC tabletIndicatio ns:Iron Deficiency Anemia Take 65 mg by mouth 3 (three) times a week Active Active Problems Problem Noted Date Diagnosed Date PCOS (polycystic ovarian syndrome) 11/12/2024 Routine adult health maintenance 11/11/2024 Overview (11/12/2024): Health Maintenance: -PCV20: N/A -Tdap vaccine: 2020 -Influenza vaccine: 2023 -Shingles vaccine: N/A -Colonoscopy: N/A -Last WWE: 11/24/21, scheduled 12/31/24 -Last Mammogram: N/A -Last DEXA: N/A -Last eye exam: N/A -Last MHA: N/A Assessment & Plan (11/12/2024 8:02 AM CDT): Health Maintenance: -PCV20: N/A -Tdap vaccine: 2020 -Influenza vaccine: 2023 -Shingles vaccine: N/A -Colonoscopy: N/A -Last WWE: 11/24/21, scheduled 12/31/24 -Last Mammogram: N/A -Last DEXA: N/A -Last eye exam: N/A -Last MHA: N/A Patient is up-to-date on health maintenance. Biometric screening form completed for employer. See me annually for routine physicals. Gastroesophageal reflux disease 08/11/2024 Assessment & Plan (11/12/2024 8:01 AM CDT): Patient has a prescription for Prilosec, has not started yet. Discussed she can try taking this for a few months and then taper off if symptoms are improved. Dysphagia 08/11/2024 History of hypothyroidism 04/20/2024 Assessment & Plan (11/12/2024 8:02 AM CDT): Recent TSH normal. Continue to monitor. 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 Patient will continue to follow with the [facility] and her social media project manager. Update me with any changes. Paroxysmal atrial fibrillation 09/27/2022 Assessment & Plan (11/12/2024 8:02 AM CDT): Patient had an episode where her Apple watch told her she was in AFib. Workup following that showed normal sinus rhythm. She does follow with Cardiology annually and does not take any medications for this. Anxiety 04/21/2022 Assessment & Plan (11/12/2024 8:01 AM CDT): Anxiety is well controlled. Continue to see Psychiatry regularly. Patient has p.r.n. Xanax which she rarely needs to take. Assessment & Plan (07/30/2023 11:40 AM RADIOLOGY PHYSICIAN ASSISTANT): Anxiety not currently controlled. Pt will schedule follow up with psychiatry to discuss alternative medications. Update me with any changes. Assessment & Plan (04/30/2023 1:43 PM CDT): Anxiety is well controlled w/ prn xanax. She is following w/ Javier Manuel RY for her psychiatric care. Last xanax use was about 1 wk ago. - continue xanax prn Assessment & Plan (04/21/2022 5:06 PM CDT): Will check am cortisol, also for hidden thyroid dysfunction Considering referral to neuro for evaluation; if the new testing is unremarkable will proceed that way. Meclizine PRN for symptoms (lightheadedness, dizziness) Class 1 obesity with serious comorbidity and body mass index (BMI) of 33.0 to 33.9 in adult 03/24/2020 Assessment & Plan (11/12/2024 8:01 AM CDT): Reviewed BMI Focus on healthy diet options Work on healthy changes Increase Zepbound of 7.5 mg weekly due to recent plateau and weight loss. Will touch base after she has finished 1 month supply. Assessment & Plan (04/30/2023 1:39 PM CDT): Body mass index is 35.82 kg/m . - discussed intensity, frequency, and duration of exercise for reduction of injury - advised patient on importance of maintaining a diet and exercise regimen including cardiovascular and weight-bearing exercise - discussed medications for assistance of weight loss such as ozempic and victoza for weight loss and their side effects - pt target exercise HR is 170 for at least 3 hrs per week for health maintenance and at least 5-7 hrs per week for weight loss and cardiovascular health Resolved Problems Problem Noted Date Diagnosed Date Resolved Date Chest pain 08/11/2024 11/11/2024 Metal foreign body in cheek 12/25/2023 11/11/2024 Assessment & Plan (12/25/2023 8:53 PM CDT): This lesion was removed using an intraoral approach and local anesthesia. She tolerated it well. The incision was closed with a single stitch of 4-0 chromic. No need for further intervention. She is going to follow up with me as needed. I will also be seeing her in the surgery department and will check it at that time. Dizziness 04/30/2023 11/11/2024 Assessment & Plan (04/30/2023 1:50 PM CDT): Pt has a h/o long covid. Her s/s have been ongoing for about 2 wks now, started suddenly, no precipitating factors. Neg orthostatic VS, HEENT showed clear nasal discharge, neg dixhalpike. She is likely experiencing eustachian tube dysfunction - use daily Flonase 2 squirts per nostril for next 2 wks - use daily antihistamine for next month - return if symptoms do not resolve and communicate w/ long covid clinic of these new s/s Long COVID 11/01/2022 07/27/2023 Chest pain 09/27/2022 07/27/2023 Joint pain 09/27/2022 07/27/2023 Palpitations 09/27/2022 07/27/2023 Ventricular premature depolarization 09/27/2022 07/27/2023 Vasomotor flushing 03/03/2022 Assessment & Plan (03/03/2022 9:20 PM CDT): Labs as ordered I will want to get the CT likely first before labs, if possible. If wait is too long we may need to get the labs first Finish out the event monitor Alprazolam PRN sent for anxiety/panic symptoms (use sparingly) Iron deficiency anemia 02/09/202211/11 Assessment & Plan (07/30/2023 11:40 AM RADIOLOGY PHYSICIAN ASSISTANT): Patient due for iron and ferritin, labs ordered today. Follow-up based on results. Numbness and tingling 02/09/20222022 Slurred speech 02/09/2022 07/27/2023 Physical exam, annual 09/13/20212022 Assessment & Plan (04/30/2023 1:45 PM CDT): Pt gets her WWC done at [facility], last pap was in November of this year. She is waiting for late May for her flu vaccine. Assessment & Plan (09/20/2021 3:15 PM RADIOLOGY PHYSICIAN ASSISTANT): A initial well visit to establish care has been performed today. Justa Martinez is not up to date on screening tests. She is in need of Cervical cancer screening- these have been ordered. She is up to date on needed preventative vaccinations; headache in third trimester 09/13/2021 07/27/2023 Gestational hypertension, third trimester 07/27/2020 07/27/2023 Hypothyroidism affecting pre gnancy in third trimester 03/24/2020 07/27/2023 Rh negative, antepartum 02/19/202007/13 Hyperlipidemia 08/13/2019 07/30/2023 Nontoxic single thyroid nodule 01/10/2018 07/30/2023 Dermatitis 12/12/2016 07/27/2023 Weight gain 12/12/2016 07/27/2023 Immunizations Immunization Administration Dates Next Due Influenza, Quadrivalent, Spl it, Preservative Free, Intramuscular 05/28/2023,05/19/2022,06/22/2020 Influenza, Trivalent, IM (MDV) 05/29/2024 Influenza, Trivalent, Preser vative Free, Intramuscular 05/17/2017 Influenza, Unspecified 06/13/2023,2021,05/19/2022(Defer red: Patient Refused),05/14/2021 Tdap 07/16/2020,08/14/2016 Social History Tobacco Use Types Packs/Day Years Used Date Smoking Tobacco: Never Smokeless Tobacco: Never Tobacco Cessation:Counseling Given: Not Answered Alcohol Use Standard Drinks/Week Comments Yes 0 (1 standard drink = 0.6 oz pur e alcohol) AUDIT-C Answer Date Recorded Q1: How often do you have a drink containing alcohol? Never 09/24/2024 Q2: How many drinks containi ng alcohol do you have on a typical day when you are drinking? Patient does not drink Q3: How often do you have si x or more drinks on one occasion? Never 09/24/2024 PHQ-2 Answer Date Recorded PHQ-2 Total Score (If total score is 3 or more points, staff should administer the PHQ-9) 0 03/10/2024 Personal Safety Answer Date Recorded Have you ever been in or are you currently in a harmful physical or emotional relationship or is someone making you feel afraid or unsafe? Denies 09/24/2024 Education Answer Date Recorded What is the highest level of school you have completed or the highest degree you have received? 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 file Not on file Last Filed Vital Signs Vital Sign Reading Time Taken Comments Blood Pressure 117/83 12/31/2024 9:31 AM CDT Pulse 76 12/31/2024 9:31 AM CDT Temperature 37.1 C (98.7 F) 12/31/2024 9:31 AM CDT Respiratory Rate 16 11/12/2024 7:31 AM CDT Oxygen Saturation 99% 12/31/2024 9:31 AM CDT Inhaled Oxygen Concentration - - Weight 90.3 kg (199 lb) 12/31/2024 9:31 AM CDT Height 165 cm (5' 4.96) 12/31/2024 9:31 AM CDT Body Mass Index 33.16 12/31/2024 9:31 AM CDT Plan of Treatment Not on file Procedures Procedure Name Priority Date/Time Associated Diagnosis Comments PAP SMEAR WITH HPV Routine 11/24/2021 from Last 3 Months or Most Recently Relevant to Health Maintenance Results * HM PAP SMEAR WITH HPV (11/24/2021) Scribed Pap Smear w/HPV Normal Historical Provider HEALTH MAINTENANCE Final Result from Last 3 Months or Most Recently Relevant to Health Maintenance Insurance [facility] Advance Directives For more information, please contact: [phone] * Full Code (Latest Code Status on File) Date Activated Date Inactivated Comments 09/24/2024 7:39 AM 09/24/2024 1:38 PM Care Teams Peanut Shaker Relationship Specialty Start Date End Date Mae Collins PA [address] [facility] [place] [address] PCP - General Family Medicine 07/19/23 Mayra Aponte MD [address] [place] [address] Obstetrics and Gynecology 09/13/21 Balaji Cornelius MD [address] [facility] [address] [place] [phone] Referring Physician Cardiology 03/01/22 Chandra Murrieta, RY [address] [place] [address] Nurse Practitioner 09/26/22 Chandler Giraldo MD [address] [place] [address] Referring Physician Otolaryngology 09/26/22 Carla Cartwright, [address] [address] [facility] Infectious Diseases 11/01/22
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
[2025-02-14 18:00] VITALS: BP 130/57; PULSE 83; RESP 13; TEMP 36.6; O2SAT 100
--- NOTE | 2025-02-14 18:07 | ED.WEAKNESS ---
HPI - Weakness General Chief complaint: Weakness Stated complaint: shakiness, weakness X2 days Time Seen by Provider: 02/14/25 17:33 History of Present Illness HPI Narrative: 29-year-old female with reported history of anxiety presents to the emergency department for generalized weakness and shakiness for the past four days. Patient states over the past few days she has felt diffusely weak we and is if her blood sugar has been dropping. She states she checks her blood sugar but it is always within normal limits. She states she has felt ?internally shaky? until today when she noticed shaking to her extremities. She states she initially thought her symptoms were anxiety but typically they did not persist this long. She denies headache, vision changes, focal numbness or weakness, chest pain or shortness of breath, abdominal pain, N/V/D, dysuria or hematuria. Denies history of thyroid disease. Related Data Allergies Allergy/AdvReac Type Severity Reaction Status Date / Time No Known Allergies Allergy Verified 02/14/25 15:33 Review of Systems Review of Systems: All systems reviewed & are unremarkable except as noted in HPI and below PMFSH Past Medical History Medical History Patient denies significant medical history Surgical History Surgical History History of tonsillectomy Family History Family History Grandparent Diabetes mellitus Father Hypertension Mother Hypertension Social History Social History Smoking status: Never smoker Alcohol intake: current Alcohol use details: Occasional Occupation/Education: occupation Additional occupation/education comments: 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 HEAD: Normocephalic, atraumatic. EYES: PERRLA, EOMI. ENT: Nares clear, no rhinorrhea or epistaxis. Mucous membranes moist. NECK: Supple. CHEST: Clear to auscultation. No respiratory distress. HEART: Regular rate and rhythm. No murmur heard. Normal peripheral pulses. ABDOMEN: Soft, nontender, nondistended, normal active bowel sounds. EXTREMITIES: Normal range of motion. No edema. SKIN: Warm, dry, no rash. NEURO: No focal deficits. Alert and oriented x4. Cranial nerves 2-12 intact. Strength 5/5 in BUE and BLE. Sensation intact throughout. Normal [id number]. No pronator drift. Course Vital Signs Vital signs: Vital Signs Temperature 97.6 F 02/14/25 15:31 Pulse Rate 104 H 02/14/25 15:31 Respiratory Rate 18 02/14/25 15:31 Blood Pressure 129/87 02/14/25 15:31 Pulse Oximetry 100 02/14/25 15:31 Oxygen Delivery Room Air 02/14/25 15:31 Temperature 97.8 F 02/14/25 18:00 Pulse Rate 81 02/14/25 19:00 Respiratory Rate 13 02/14/25 19:00 Blood Pressure 128/85 02/14/25 19:00 Pulse Oximetry 100 02/14/25 19:00 Oxygen Delivery Room Air 02/14/25 15:31 MDM - Weakness MDM Narrative Medical decision making narrative: 29-year-old female with reported history of anxiety presents emergency department for generalized weakness and shakiness for the past 4 days. Vitals are stable. Patient is afebrile and nontoxic appearing. She has no neurologic deficits. Lab work shows no leukocytosis or anemia. Chemistries are unremarkable with no electrolyte derangements. CK magnesium are within normal limits. Urinalysis is unremarkable. UDS and ETOH are negative. Viral swabs are negative. TSH is elevated 4.750. Patient was updated on results. Pending free T4 results, however patient is requesting to be discharged home. She was given IV fluids and remains resting comfortably in exam bed. I advised her to have her thyroid hormone checked by her PCP and encouraged close follow-up with them. I discussed strict ED return precautions. She is agreeable with the plan verbalized understanding. Discharged in stable condition. Lab Data 02/14/25 15:56 02/14/25 15:56 Labs: Lab Results 02/14/25 02/14/25 02/14/25 Range/Units 15:54 15:56 16:10 WBC 9.1 (4.5-10.0) K/mm3 RBC 5.07 (4.2-5.4) M/mm3 Hgb 13.2 (12.0-15.0) g/dL Hct 41.3 (37.0-47.0) % MCV 81.5 (80-100) fl MCH 26.0 (26-34) pg MCHC 32.0 (32-36) g/dl RDW 13.0 (11.5-14.5) % Plt Count 273 (150-375) k/mm3 MPV 10.2 (7.4-10.4) fl Immature Gran % (Auto) 0.2 (0-0.5) % Neut % (Auto) 67.1 (45.5-73.1) % Lymph % (Auto) 26.4 (18.3-44.2) % [place] % (Auto) 5.3 (2.6-8.5) % Eos % (Auto) 0.8 (0-4.4) % Baso % (Auto) 0.2 (0.2-1.2) % Lymph # (Auto) 2.39 (0.9-3.2) K/mm3 [place] # (Auto) 0.5 (0.1-0.6) K/mm3 Eos # (Auto) 0.1 (0-0.3) K/mm3 Baso # (Auto) 0.0 (0.0-0.1) K/mm3 Abs Immat Gran (auto) 0.02 (0.00-0.031) K/mm3 Absolute Neuts (auto) 6.1 (1.3-6.7) K/mm3 Absolute Nucleated RBC 0.000 (0.0-0.012) K/mm3 Nucleated RBC % 0.0 (0.0-0.2) % Sodium 140 (137-145) mmol/L Potassium 3.5 (3.4-5.0) mmol/L Chloride 104 (98-107) mmol/L Carbon Dioxide 27 (22-30) mmol/L Anion Gap 9 (4-12) mmol/L BUN 12 (7-17) mg/dL Creatinine 0.85 (0.7-1.0) mg/dL Estim Creat Clear Calc 92 ml/min Estimated GFR > 60 (59 - ) Glucose 96 (65-110) mg/dL Calcium 9.3 (8.4-10.2) mg/dL Magnesium 1.9 (1.6-2.3) mg/dL Total Bilirubin 0.2 (0.2-1.3) mg/dL AST 25 (14-36) U/L ALT 16 (6-35) U/L Alkaline Phosphatase 80 (38-126) U/L Total Creatine Kinase 91 (30-135) U/L Total Protein 7.7 (6.3-8.2) g/dL Albumin 4.3 (3.5-5.1) g/dL TSH (Reflex) 4.750 H (0.465-4.68) uIU/mL Free T4 Pending Urine Color Yellow (Yellow) Urine Appearance Clear (Clear) Urine pH 7.0 (5.0-9.0) Ur Specific [place] 1.006 (1.001-1.035) Urine Protein Negative (Negative) mg/dL Urine Glucose (UA) Negative (Negative) mg/dL Urine Ketones Negative (Negative) mg/dL Ur Blood (Man) Negative (Negative) Urine Nitrate Negative (Negative) Urine Bilirubin Negative (Negative) Urine Urobilinogen 0.2 (<2.0) mg/dL Leukocyte Esterase Rfl Negative (Negative) MARISOL/UL POC Urine HCG, Qual Negative (Negative) Urine Opiates Screen Negative (Negative) Urine Methadone Screen Negative (Negative) Ur Barbiturates Screen Negative (Negative) Ur Phencyclidine Scrn Negative (Negative) Ur Amphetamine Screen Negative (Negative) U Benzodiazepines Scrn Negative (Negative) Urine Cocaine Screen Negative (Negative) U Cannabinoids Screen Negative (Negative) Ethyl Alcohol < 10 (<10) mg/dL Influenza A (RT-PCR) Negative (Negative) Influenza B (RT-PCR) Negative (Negative) RSV (RT-PCR) Negative (Negative) SARS-CoV-2 RNA (RT-PCR) Negative (Negative) Discharge Plan Discharge Clinical Impression: Generalized weakness Patient Disposition: Home Condition: Stable Instructions: Antibiotic Form, Weakness (ED) Additional Instructions: Your evaluated in the emergency department for shakiness and generalized weakness. Your workup here is reassuring other than You were found have an elevated TSH. You need to have this lab and your free T4 rechecked by her primary care doctor. Please make sure to drink plenty of fluids. Follow-up closely with your PCP. Return to the emergency department if you develop vision changes, focal numbness or weakness, chest pain or shortness of breath, fever, or other concerning symptoms. Patient Language: Serbian Prescriptions: No Action nystatin 100,000 unit/mL suspension 5 ml PO QID 7 Days Qty: 150 0RF Rx Instructions: swish and swallow Follow-up/Referrals: UNKNOWN,DOCTOR [Primary Care Provider] -
[2025-02-14 18:35] LABS: Cannabinoid Screen Urine Negative (Negative)
[2025-02-14 18:41] LABS: Creatine Kinase 91 U/L (30-135); Magnesium 1.9 mg/dL (1.6-2.3)
[2025-02-14 19:00] VITALS: BP 128/85; PULSE 81; RESP 13; O2SAT 100
[2025-02-14 19:22] LABS: Thyroid Stimulating Hormone Reflex 4.750 uIU/mL (0.465-4.68)
== END 2025-02-14 20:44 | disposition home or self-care (01) ==
PROVIDERS: Emergency Medicine; Emergency Provider Physician Assistant
DX: R53.1 Weakness (principal); Z20.822 Contact with and (suspected) exposure to COVID-19
CPT/HCPCS: 36415; 71046; 80053; 80307; 81003; 81025; 82077; 82550; 83735; 84439; 84443; 85025; 87637; 99283; J7030

== ENCOUNTER 2025-07-05 23:37 | Emergency (ER) | payer OTHER, SELFPAY ==
--- NOTE | ~2025-07-05 | XR_ITS ---
Examination: XR chest 2V Clinical History: palpitations, sob, indigestion Comparison: 02/14/2025 Technique: PA and Lateral Findings: Cardiomediastinal silhouette normal size and configuration. Lungs clear. No acute bony abnormality. IMPRESSION: 1. No acute cardiopulmonary findings. Reviewed, dictated and finalized at location R. Y MAN
[2025-07-06 00:04] VITALS: BP 126/96; PULSE 66; RESP 22; O2SAT 96
--- NOTE | 2025-07-06 00:16 | ECG_ITS ---
Test Date: 2025-07-06 00:33:01 Measurements Intervals [place] Rate: 77 P: 48 LA: 168 QRS: 6 QRSD: 97 T: 9 QT: 358 QTc: 407 Interpretive Statements SINUS RHYTHM LOW QRS VOLTAGE IN PRECORDIAL LEADS [QRS DEFLECTION < 1.0 mV IN CHEST LEADS] POSSIBLE RIGHT VENTRICULAR CONDUCTION DELAY [RSR (QR) IN V1/V2] BORDERLINE ECG Compared to ECG 03/26/2024 12:00:28 NO CHANGE Electronically Signed On 07-06-2025 07:26:27 CLAMMER by Mynor Turner M.D.
[2025-07-06] MEDS: ONDANSETRON INJ 4 MG/2 ML VIAL IV PUSH (00:38)
--- OUTSIDE RECORDS SUMMARY | 2025-07-06 00:38 | XMS_ITS | Clinical Summary ---
Author Organization [facility] Address [address] [place] [address] Care Team Providers Care Certified Pathology Assistant Name Role Phone Mayra Aponte MD Unavailable Balaji Cornelius MD Unavailable Chandra Murrieta NP Unavailable [phone] Chandler Giraldo MD Unavailable [phone] Mae Collins Primary Care Provider [phone] Allergies No known active allergies Medications multivit-min/amy sedrick fumarate (MULTI VITAMIN ORAL) Take by mouth Active magnesium gluconate 200 mg tabletIndication s:hypomagnesemia 1 tablet (200 mg total) Active ALPRAZolam (XANAX) 0.25 mg tablet Take 1 tablet (0.25 mg total) by mouth nightly as needed for anxiety Active cyclobenzaprine (FLEXERIL) 10 mg tablet Take 1 tablet (10 mg total) by mouth nightly as needed for muscle spasms 30 tablet 1 4 Active ferrous sulfate ER 324 mg (65 mg iron) EC tabletIndication s:Iron Deficiency Anemia Take 65 mg by mouth 3 (three) times a week Active MAGNESIUM L-THREONATE ORAL Magnesium 4 Active tirzepatide, weight loss, (Zepbound) 10 mg/0.5 mL pen injectorIndicati ons:Weight Loss Management for Obese Patient (BMI >= 30) Inject 0.5 mL (10 mg total) under the skin every 7 days 6 mL 1 5 Active azithromycin (ZITHROMAX) 250 mg tabletIndication s:Lower respiratory infection (e.g., bronchitis, pneumonia, pneumonitis, pulmonitis) Take 2 tablets the first day, then 1 tablet daily for 4 days. 6 tablet 5 Active benzonatate (TESSALON) 200 mg capsuleIndicatio ns:Lower respiratory infection (e.g., bronchitis, pneumonia, pneumonitis, pulmonitis) Take 1 capsule (200 mg total) by mouth 3 (three) times a day as needed for cough 30 capsule 5 Active albuterol HFA (PROVENTIL HFA,VENTOLIN HFA,PROAIR HFA) 90 mcg/actuation inhalerIndicatio ns:Lower respiratory infection (e.g., bronchitis, pneumonia, pneumonitis, pulmonitis) Inhale 2 puffs every 6 (six) hours as needed for wheezing or shortness of breath 1 each 5 Active predniSONE (DELTASONE) 20 mg tabletIndication s:Lower respiratory infection (e.g., bronchitis, pneumonia, pneumonitis, pulmonitis) Take 2 tablets (40 mg) by mouth daily for 1 day 2 tablet 5 06/22/20 25 Active Problems Problem Noted Date Diagnosed Date [...] 11/01/2022 Assessment & Plan (07/30/2023 11:40 AM BROKER ASSISTANT): Palpating possibly due to long COVID. Patient will continue to follow with the 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 Update me with any changes. Paroxysmal atrial [...] take. Assessment & Plan (07/30/2023 11:40 AM BROKER ASSISTANT): Anxiety not currently controlled. Pt will [...] 33.9 in adult 03/24/2020 Assessment & Plan (02/20/2025 8:15 AM CDT): Orders: tirzepatide, weight loss, (Zepbound) 10 mg/0.5 mL pen injector; Inject 0.5 mL (10 mg total) under the skin every 7 days Assessment & Plan (11/12/2024 8:01 AM CDT): [...] 02/09/202211/11 Assessment & Plan (07/30/2023 11:40 AM BROKER ASSISTANT): Patient due for iron and ferritin, labs ordered today. Follow-up based on results. Numbness and tingling 02/09/20222022 Slurred speech 02/09/2022 07/27/2023 Physical exam, annual 09/13/20212022 Assessment & Plan (04/30/2023 1:45 PM CDT): Pt gets her WWC done at [facility], last pap was in November of this year. She is waiting for late May for her flu vaccine. Assessment & Plan (09/20/2021 3:15 PM BROKER ASSISTANT): A initial well visit to establish [...] Encounters Date Type Department Care Team Description 06/22/2025 4:22 PM BROKER ASSISTANT - 06/22/2025 11:59 PM BROKER ASSISTANT Hospital Encounter [address] [address] Lower respiratory infection (e.g., bronchitis, pneumonia, pneumonitis, pulmonitis) Discharge Disposition: Discharge to home or self care 06/22/2025 Results Follow-Up [facility] at [address] [address] Britany Lewis PA XR Chest PA Lateral 2 Views 06/21/2025 7:00 PM BROKER ASSISTANT Office Visit [facility] [address] [address] Solange Kerns NP Lower respiratory infection (e.g., bronchitis, pneumonia, pneumonitis, pulmonitis) (Primary Dx) 05/18/2025 2:30 PM CDT Office Visit [facility] [address] [place] [address] [address] [place] [id number] Neeru Tran MD PhD Melanocytic nevi of trunk (Primary Dx); Lentigines; Seborrheic keratosis from Last 3 Months Immunizations Immunization Administration Dates Next Due Influenza, Quadrivalent, Spl it, Preservative Free, Intramuscular 05/28/2023,05/19/2022,06/22/2020 Influenza, Trivalent, IM (MDV) 05/29/2024 Influenza, Trivalent, Preser vative Free, Intramuscular 05/17/2017 Influenza, Unspecified 06/13/2023,2021,05/19/2022(Defer red: Patient Refused),05/14/2021 Tdap 07/16/2020,08/14/2016 Surgical History Surgery Date Site/Laterality Comments TONSILLECTOMY 08/13/2009 - 08/12/2010 SECTION 08/13/2020 - 08/12/2021 UPPER GASTROINTESTINAL ENDOSCOPY Medical History Medical History Date Comments Hypothyroidism 2013 Obesity Nontoxic single thyroid nodule 01/10/2018 Anxiety [...] Not Answered Alcohol Use Standard Drinks/Week Comments Not Currently 0 (1 standard drink = 0.6 oz pur e alcohol) PHQ-2 Answer Date Recorded PHQ-2 Total Score (If total score is 3 or more points, staff should administer the PHQ-9) 0 02/20/2025 AUDIT-C Answer Date Recorded Q1: How often do you have a drink containing alcohol? Never 06/21/2025 Q2: How many drinks containi ng alcohol do you have on a typical day when you are drinking? Patient does not drink Q3: How often do you have si x or more drinks on one occasion? 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 Not on file Not on file Last Filed Vital Signs Vital Sign Reading Time Taken Comments Blood Pressure 132/97 06/21/2025 6:56 PM BROKER ASSISTANT Pulse 78 06/21/2025 6:56 PM BROKER ASSISTANT Temperature 36.8 C (98.3 F) 06/21/2025 6:56 PM BROKER ASSISTANT Respiratory Rate 16 02/20/2025 7:47 AM CDT Oxygen Saturation 99% 06/21/2025 6:56 PM BROKER ASSISTANT Inhaled Oxygen Concentration - - Weight 87.1 kg (192 lb) 06/21/2025 6:56 PM BROKER ASSISTANT Height 162.6 cm (5' 4) 06/21/2025 6:56 PM BROKER ASSISTANT Body Mass Index 32.96 06/21/2025 6:56 PM BROKER ASSISTANT Plan of Treatment Health Maintenance Due Date Last Done Comments Hepatitis C Screening 1993 Hepatitis B Screening 2011 HPV Vaccines (1 - 3-dose SCDM series) 02/19/2020 Cervical Cancer Screening 11/24/2024 11/24/2021 Covid-19 Vaccine ( season) 2025 08/16/2021, 12/08/2020, 11/17/2020 Regular Well Visit/Exam 18-64 11/12/2025 11/12/2024, 09/13/2021 Depression Screening 02/20/2026 02/20/2025, 03/10/2024, 07/30/2023, Additional history exists DTaP/Tdap/Td Vaccine (3 - Td or Tdap) 07/16/2030 07/16/2020, 08/14/2016 Pneumococcal vaccine <65 Aged Out 12/11/2020 No longer eligible based on patient's age to complete this topic Influenza Vaccine Completed 05/27/2025, , 06/13/2023, Additional history exists Varicella Vaccines Discontinued Procedures Procedure Name Priority Date/Time Associated Diagnosis Comments XR CHEST PA LATERAL 2 VIEWS Schedule LINDA, Read LINDA (Appt Today, Awaiting Results) 06/22/2025 4:35 PM BROKER ASSISTANT Lower respiratory infection (e.g., bronchitis, pneumonia, pneumonitis, pulmonitis) HM PAP SMEAR WITH HPV Routine 11/24/2021 from Last 3 Months or Most Recently Relevant to Health Maintenance Results * XR Chest PA Lateral 2 Views (06/22/2025 4:35 PM BROKER ASSISTANT) Anatomical Region Laterality Modality Body, Chest N/A Computed Radiogr aphy 06/22/2025 5:51 PM BROKER ASSISTANT Impressions 06/22/2025 5:51 PM BROKER ASSISTANT No acute cardiopulmonary abnormality. Electronically signed by: Osmar Tate MD Narrative 06/22/2025 5:51 PM BROKER ASSISTANT EXAMINATION: XR CHEST PA LATERAL 2 VIEWS HISTORY: cough TECHNIQUE: Frontal and lateral views of the chest. COMPARISON: 07/16/2023 FINDINGS: Cardiac silhouette and mediastinal contours are normal. No focal consolidation. No pleural effusion or pneumothorax. Procedure Note Osmar Tate MD - 06/22/2025 EXAMINATION: XR CHEST PA LATERAL 2 VIEWS HISTORY: cough TECHNIQUE: Frontal and lateral views of the chest. COMPARISON: 07/16/2023 FINDINGS: Cardiac silhouette and mediastinal contours are normal. No focal consolidation. No pleural effusion or pneumothorax. IMPRESSION: No acute cardiopulmonary abnormality. Electronically signed by: Osmar Tate MD Solange Kerns TENT ASSEMBLER IMG XR PROCEDURES Final Result * PAP SMEAR WITH HPV (11/24/2021) Scribed Pap Smear w/HPV Normal Historical Provider HEALTH MAINTENANCE Final Result from Last 3 Months or Most Recently Relevant to Health Maintenance [facility] Advance Directives For more information, please contact: [phone] * Full Code (Latest Code Status on File) Date Activated Date Inactivated Comments 09/24/2024 7:39 AM 09/24/2024 1:38 PM Care Teams Certified Pathology Assistant Relationship Specialty Start Date End Date Mae Collins PA [address] [place] [address] PCP - General Family Medicine 07/19/23 Mayra Aponte MD [address] [place] [address] Obstetrics and Gynecology 09/13/21 Balaji Cornelius MD [address] [place] [address] Referring Physician Cardiology 03/01/22 Chandra Murrieta, RY [address] [place] [address] Nurse Practitioner 09/26/22 Chandler Giraldo MD [address] [place] [address] Referring Physician Otolaryngology 09/26/22 Carla Cartwright, [facility] [address] [address] Nurse [employer] Infectious Diseases 11/01/22
--- OUTSIDE RECORDS SUMMARY | 2025-07-06 00:38 | XMS_ITS | Patient Health Record ---
Author Organization [facility] [employer] Address [address] [place] [address] Care Team Providers Care Director Of Logistics Name Role Phone Mae Collins PA-C Primary Care Provider Chandra Christy Unavailable [phone] Allergies No Known Allergies Reason For Referral No Information Medications Medication SIG (Take, Route, Frequency, Duration) Notes Start Date End Date Status ALPRAZolam 0.25 MG Tablet 1 tablet Oral once a day; Duration: 30 days As needed 03/30/2025 Active Magnesium *Pick strength-form from [employer] for eRX* 10/22/2023 Active Zepbound 2.5 MG/0.5ML Solution Auto-injector 0.5 mL Subcutaneous Active Immunizations Vaccine Route Administration Date Status Comme nts COVID-19 (SARS-COV-2) vaccin e, unspecified Unknown 12/11/2020 Administered Social History Tobacco Use: Social History Observation Description Date Details (start date - stop date) Never Smoker NA - NA Sex Assigned At : Social History Observation Description Sex Assigned At Female Social History Miscellaneous: Social Info Question Answer Notes Advance Care Planning Are you your own decision-maker Yes Do you have Power of Vector Control Specialist for Health or Medi jose? No Tobacco Use: Social Info Question Answer Notes Tobacco Control (Standard) Tobacco use: Nonsmoker Additional Details Category Social Info Options Details Migrated Social History Migrated Social History Alcohol Intake: Occasional 04/27/2022,Tobacco Years: Never smoker 04/27/2022 Problems Problem Type SNOMED Code ICD Code Onset Dates Problem Status W/U Status Risk Notes Problem Hypothyroidism (27100415) Other specified hypothyroidism (E03.8) Active confirmed Problem Generalized anxiety disorder (93431602) Generalized anxiety disorder (F41.1) 10/22/19 Active confirmed Problem History of endocrine disorder (346736711) Personal history of other endocrine, nutritional and metabolic disease (Z86.39) 10/22/19 24 Active confirmed Problem Panic disorder (375026570) Panic disorder [episodic paroxysmal anxiety] without agoraphobia (F41.0) 10/22/19 Active confirmed Problem Polycystic ovary syndrome (disorder) (588666661) PCOS (polycystic ovarian syndrome) (E28.2) Active confirmed Vital Signs Heart Rate 75 /min 03/30/2025 Height-cm 165.10 cm 03/30/2025 Blood pressure diastolic 85 mm Hg 03/30/2025 Weight-kg 90.27 kg 03/30/2025 Height 65.00 in 03/30/2025 Blood pressure systolic 126 mm Hg 03/30/2025 Weight 199.0 lbs 03/30/2025 BMI 33.11 kg/m2 03/30/2025 [facility]counters [facility] [address] [address] 07/14/2024 Chandra Murrieta Generalized anxiety disorder F41.1 ; Panic disorder [episodic paroxysmal anxiety] without agoraphobia F41.0 ; Personal history of other endocrine, nutritional and metabolic disease Z86.39 ; Other specified hypothyroidism E03.8 ; Elevated vitamin B12 level R79.89 and PCOS (polycystic ovarian syndrome) E28.[address] [address] 10/07/2024 Chandra Murrieta [address] [address] 11/18/2024 Chandra Murrieta Encounter for screen ing for depression Z13.31 ; Encounter for screening for cardiovascular disorders Z13.6 ; Generalized anxiety disorder F41.1 ; Panic disorder [episodic paroxysmal anxiety] without agoraphobia F41.0 ; Personal history of other endocrine, nutritional and metabolic disease Z86.39 ; Other specified hypothyroidism E03.8 ; Elevated vitamin B12 level R79.89 and PCOS (polycystic ovarian syndrome) E28.2 [facility] [employer] [address] [address] 03/30/2025 Chandra Murrieta Generalized anxiety disorder F41.1 and Panic disorder [episodic paroxysmal anxiety] without agoraphobia F41.0 Assessments Encounter Date Diagnosis (ICD Code) Assessment Notes Treatment Notes Treatment Clinical Notes Section Notes 07/14/2024 Generalized anxiety disorder (ICD-10 - F41.1) 1. Internal shaking and tremors - Plan: Reevaluate after stopping the compounded tirzepatide. Consider starting propranolol 10 mg twice a day for akathisia. Monitor response and side effects. 2. Anxiety - Plan: Continue alprazolam as needed for anxiety management. Encourage non-pharmacol ogical anxiety management techniques. 3. Elevated vitamin B12 - Plan: Recheck vitamin B12 level in one month. Investigate potential causes of elevated B12 if still high without supplementati on. Follow-up - Plan: Schedule follow-up appointment in one month. Review lab results and adjust treatment plan as needed. 11/18/2024 Encounter for screening for depression (ICD-10 - Z13.31) 03/30/2025 Generalized anxiety disorder (ICD-10 - F41.1) 03/30/2025 Panic disorder [episodic paroxysmal anxiety] without agoraphobia (ICD-10 - F41.0) 11/18/2024 Encounter for screening for cardiovascular disorders (ICD-10 - Z13.6) 07/14/2024 Panic disorder [episodic paroxysmal anxiety] without agoraphobia (ICD-10 - F41.0) 1. Internal shaking and tremors - Plan: Reevaluate after stopping the compounded tirzepatide. Consider starting propranolol 10 mg twice a day for akathisia. Monitor response and side effects. 2. Anxiety - Plan: Continue alprazolam as needed for anxiety management. Encourage non-pharmacol ogical anxiety management techniques. 3. Elevated vitamin B12 - Plan: Recheck vitamin B12 level in one month. Investigate potential causes of elevated B12 if still high without supplementati on. Follow-up - Plan: Schedule follow-up appointment in one month. Review lab results and adjust treatment plan as needed. 07/14/2024 Personal history of other endocrine, nutritional and metabolic disease (ICD-10 - Z86.39) 1. Internal shaking and tremors - Plan: Reevaluate after stopping the compounded tirzepatide. Consider starting propranolol 10 mg twice a day for akathisia. Monitor response and side effects. 2. Anxiety - Plan: Continue alprazolam as needed for anxiety management. Encourage non-pharmacol ogical anxiety management techniques. 3. Elevated vitamin B12 - Plan: Recheck vitamin B12 level in one month. Investigate potential causes of elevated B12 if still high without supplementati on. Follow-up - Plan: Schedule follow-up appointment in [...] alprazolam as needed for anxiety management. Encourage non-pharmacol ogical anxiety management techniques. 3. Elevated vitamin B12 - Plan: Recheck vitamin B12 level in one month. Investigate potential causes of elevated B12 if still high without supplementati on. Follow-up - Plan: Schedule follow-up appointment in one month. Review lab results and adjust treatment plan as needed. 11/18/2024 Personal history of other endocrine, nutritional and metabolic disease (ICD-10 - Z86.39) 07/14/2024 Elevated vitamin B12 level (ICD-10 - R79.89) 1. Internal shaking and tremors - Plan: Reevaluate after stopping the compounded tirzepatide. Consider starting propranolol 10 mg twice a day for akathisia. Monitor response and side effects. 2. Anxiety - Plan: Continue alprazolam as needed for anxiety management. Encourage non-pharmacol ogical anxiety management techniques. 3. Elevated vitamin B12 - Plan: Recheck vitamin B12 level in one month. Investigate potential causes of elevated B12 if still high without supplementati on. Follow-up - Plan: Schedule follow-up appointment in [...] alprazolam as needed for anxiety management. Encourage non-pharmacol ogical anxiety management techniques. 3. Elevated vitamin B12 - Plan: Recheck vitamin B12 level in one month. Investigate potential causes of elevated B12 if still high without supplementati on. Follow-up - Plan: Schedule follow-up appointment in one month. Review lab results and adjust treatment plan as needed. 11/18/2024 Elevated vitamin B12 level (ICD-10 - R79.89) 11/18/2024 PCOS (polycystic ovarian syndrome) (ICD-10 - E28.2) 11/18/2024 Other Justa Mcdonald, female patient with history of anxiety, presents [...] efforts have been made to correct them. 03/30/2025 Other Justa Mcdonald, female patient with history of anxiety and panic attacks, presents for medication refill and discussion about managing anxiety during potential future . Anxiety Disorder with Panic Attacks Assessment: Patient reports continued management of anxiety symptoms with as-needed use of Xanax. She experiences occasional panic attacks but has been able to work through them without emergency room visits. Patient notes experiencing adrenaline dumps and nervous system activation, particularly with job changes and air travel. Overall, symptoms appear to be stable and manageable with current treatment approach. Plan: - Continue Xanax 0.25 mg as needed - Prescribe 30 tablets with 1 refill (6-month supply) - [facility] - Discontinue buspirone (patient reports no longer taking it) - Encourage continued use of coping strategies for managing panic attacks - Follow up in 6 months or sooner if symptoms worsen Family Planning Considerations Assessment: Patient inquires about managing anxiety and depression during potential future . She expresses concern about medication safety and management of symptoms if she were to become . Plan: - Educate on safety of various psychiatric medications during - Discuss potential risks of benzodiazepine use during , including: - Risk of withdrawal with frequent use or use close to delivery - Potential for delayed respiration - Advise that occasional use of Xanax is likely safe during - Consider switching to lorazepam if anxiety management becomes necessary during - Reassure patient that anxiety and panic attacks can be managed safely during - Recommend discussion of specific medication management plan if patient becomes the note is transcribed using speech recognition software. It is a reflection of a visit with the patient. It might have some inaccuracy, including medication names and transcribing errors, though efforts have been made to correct them. Plan Of Treatment Future Test Test Name Order Date TSH (899) 02/21/2024 ESTROGENS, FRACTIONATED, LC/MS (00608) 1 09/14/2023 TSH+FREE T4 (10668) 07/14/2024 INSULIN (561) 07/14/2024 VITAMIN B12/FOLATE, SERUM PANEL (7065) 1 09/14/2023 T3, FREE (63711) 07/14/2024 TESTOSTERONE, FREE (30645) 07/14/2024 Next Appt Details Provider Name:Chandra newman, 09/28/2025 04:30:00 PM, [address], [facility] [address], [place], [address], Insurance Providers Payer Name Payer Address Payer Phone Subscriber Number Group Number Insured Name Patient Relationship to Insured Coverage Start Date Coverage End Date [employer] [address] [place] [address] [id number] ANSELMO MCDONALD Spouse - patient is the spouse of the insured Medical (General) History Medical History History ICD Code Problems: Abnormal uterine bleeding Generalized anxiety disorder History of hypothyroidism Lightheadedness Loss of hair Obesity Panic disorder , Surgical History Surgery Date(Month/Year) Tonsilectomy/adenoids 08/13/2011 Other 09/03/2020
[2025-07-06] MEDS: BELLADONNA ALK/PHENOB ELIX 10 ML, MAG HYDROX/ALUMINUM HYD/SIMETH 30 ML, LIDOCAINE 2% VI... PO (00:39)
[2025-07-06 00:50] LABS: Hematocrit 38.7 % (37.0-47.0); Hemoglobin 12.7 g/dL (12.0-15.0); Immature Granulocyte Percent A 0.2 % (0-0.5); Lymphocytes Absolute Auto 1.90 K/mm3 (0.9-3.2); Mean Corpuscular HGB Conc 32.8 g/dl (32-36); Mean Corpuscular Hemoglobin 26.5 pg (26-34); Mean Corpuscular Volume 80.6 fl (80-100); Nucleated Red Blood Cells Absolute Auto 0.000 K/mm3 (0.0-0.012); Nucleated Red Blood Cells Perc 0.0 % (0.0-0.2); Platelet Count Result 250 k/mm3 (150-375); Red Blood Count 4.80 M/mm3 (4.2-5.4); White Blood Count 8.9 K/mm3 (4.5-10.0)
[2025-07-06 01:00] LABS: Alanine Aminotransferase 16 U/L (6-35); Albumin Level 4.1 g/dL (3.5-5.1); Alkaline Phosphatase 87 U/L (38-126); Anion Gap 7 mmol/L (4-12); Aspartate Amino Transferase 28 U/L (14-36); Bilirubin,Total 0.3 mg/dL (0.2-1.3); Blood Urea Nitrogen 9 mg/dL (7-17); Calcium 9.0 mg/dL (8.4-10.2); Carbon Dioxide 26 mmol/L (22-30); Chloride 105 mmol/L (98-107); Estimated Glomerular Filt Rate > 60; Glucose 99 mg/dL (65-110); Magnesium 2.1 mg/dL (1.6-2.3); Potassium 3.4 mmol/L (3.4-5.0); Sodium 138 mmol/L (137-145); Total Protein 7.2 g/dL (6.3-8.2)
[2025-07-06 01:03] LABS: INR 1.0; Prothrombin Time 12.9 Seconds (11.1-14.7)
[2025-07-06 01:04] LABS: Partial Thromboplastin Time 30.0 Seconds (22.3-36.8)
[2025-07-06 01:07] VITALS: BP 112/75; PULSE 78; RESP 17; O2SAT 99
[2025-07-06 01:11] LABS: Troponin I < 0.012 ng/mL (0.000-0.034)
--- NOTE | 2025-07-06 01:25 | ED.NAVMDI ---
HPI - Nausea/Vomiting/Diarrhea General Chief complaint: Nausea/Vomiting/Diarrhea Stated complaint: nausea/indigestion Time Seen by Provider: 07/05/25 23:57 Source: patient Mode of arrival: ambulatory Limitations: no limitations History of Present Illness HPI Narrative: Patient is a 30-year-old female who presents the ED with report of palpitations. Patient reports she developed palpitations around 9:45 p.m. tonight. States it felt as though her heart was beating irregularly, like it was going over a cobblestone road. She denied rapid heart rate. She states this lasted for approximately 20 seconds before improving. Patient was feeling lightheaded, mildly short of breath when the palpitations were occurring. She reports still feeling somewhat lightheaded. Reports having indigestion/burning in her epigastric region. She took 2 Pepcid at home but denied improvement. States this feels different than her acid reflux. She also states this feel different than her normal anxiety. Denies previous cardiac issues. Has hx of PVCs Related Data Allergies Allergy/AdvReac Type Severity Reaction Status Date / Time No Known Allergies Allergy Verified 07/05/25 23:37 Review of Systems Review of Systems: All systems reviewed & are unremarkable except as noted in HPI. 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 HEAD: Normocephalic, atraumatic. RESPIRATORY: Airway patent, respirations nonlabored. Clear to auscultation bilaterally, no rales, rhonchi, wheezing. No focal lung sounds. CARDIOVASCULAR: Regular rate and rhythm without murmurs, rubs, or gallops. No ectopy appreciated. Peripheral pulses intact. ABDOMINAL: Soft, no significant focal tenderness throughout epigastric region, nondistended. Normoactive BS. MUSCULOSKELETAL: Moves all extremities. No gross deformities. SKIN: Warm, dry, normal color. NEURO: A&O X3. Speech clear. Cranial nerves II-XII grossly intact. Steady gait. No ataxic movements. PSYCHIATRIC: Appropriate mood and affect. Normal interaction. Course Vital Signs Vital signs: Vital Signs Pulse Rate 66 07/06/25 00:04 Respiratory Rate 22 H 07/06/25 00:04 Blood Pressure 126/96 H 07/06/25 00:04 Pulse Oximetry 96 07/06/25 00:04 Pulse Rate 78 07/06/25 01:07 Respiratory Rate 17 07/06/25 01:07 Blood Pressure 112/75 07/06/25 01:07 Pulse Oximetry 99 07/06/25 01:07 MDM - Nausea/Vomiting/Diarrhea MDM Narrative Medical decision making narrative: EKG without concerning ST changes. NSR. No ectopy. Chest x-ray interpreted by myself without acute focal findings or consolidation D-dimer within normal range Troponin undetectable Laboratory studies without leukocytosis or anemia. No significant electrolyte derangement. Magnesium within normal range. TSH was elevated to 6.04. T4 WNL. Patient does have previous history of hypothyroidism, had been on levothyroxine in the past but is not currently on this. Discussed this with patient that this may be contributing to palpitations. Subclinical hypothyroidism at this time, advised very close follow-up with PCP for further evaluation management of this. Discussed otherwise overall reassuring workup with patient. Advised close follow-up with PCP for further evaluation, repeat testing of thyroid studies, possible Holter monitor. Will place ambulatory order for outpatient Holter monitor and refer to Cardiology for eval as needed. Advised patient to stay well hydrated. Given strict return precautions. She is in agreement with plan. Feels comfortable going home. Discharged in stable condition. Medical Records Attestation: I reviewed the patient's medical records. Lab Data Attestation: I reviewed the patient's lab results. 07/06/25 00:42 07/06/25 00:42 Labs: Lab Results 07/06/25 Range/Units 00:42 WBC 8.9 (4.5-10.0) K/mm3 RBC 4.80 (4.2-5.4) M/mm3 Hgb 12.7 (12.0-15.0) g/dL Hct 38.7 (37.0-47.0) % MCV 80.6 (80-100) fl MCH 26.5 (26-34) pg MCHC 32.8 (32-36) g/dl RDW 12.6 (11.5-14.5) % Plt Count 250 (150-375) k/mm3 MPV 10.3 (7.4-10.4) fl Immature Gran % (Auto) 0.2 (0-0.5) % Neut % (Auto) 72.7 (45.5-73.1) % Lymph % (Auto) 21.4 (18.3-44.2) % Fannin % (Auto) 4.5 (2.6-8.5) % Eos % (Auto) 0.9 (0-4.4) % Baso % (Auto) 0.3 (0.2-1.2) % Lymph # (Auto) 1.90 (0.9-3.2) K/mm3 Fannin # (Auto) 0.4 (0.1-0.6) K/mm3 Eos # (Auto) 0.1 (0-0.3) K/mm3 Baso # (Auto) 0.0 (0.0-0.1) K/mm3 Abs Immat Gran (auto) 0.02 (0.00-0.031) K/mm3 Absolute Neuts (auto) 6.5 (1.3-6.7) K/mm3 Absolute Nucleated RBC 0.000 (0.0-0.012) K/mm3 Nucleated RBC % 0.0 (0.0-0.2) % PT 12.9 (11.1-14.7) Seconds INR 1.0 APTT 30.0 (22.3-36.8) Seconds D-Dimer < 0.27 (<0.48) ug/mL Sodium 138 (137-145) mmol/L Potassium 3.4 (3.4-5.0) mmol/L Chloride 105 (98-107) mmol/L Carbon Dioxide 26 (22-30) mmol/L Anion Gap 7 (4-12) mmol/L BUN 9 (7-17) mg/dL Creatinine 0.81 (0.7-1.0) mg/dL Estim Creat Clear Calc Not Reportable Estimated GFR > 60 (59 - ) Glucose 99 (65-110) mg/dL Calcium 9.0 (8.4-10.2) mg/dL Magnesium 2.1 (1.6-2.3) mg/dL Total Bilirubin 0.3 (0.2-1.3) mg/dL AST 28 (14-36) U/L ALT 16 (6-35) U/L Alkaline Phosphatase 87 (38-126) U/L Troponin I < 0.012 (0.000-0.034) ng/mL Total Protein 7.2 (6.3-8.2) g/dL Albumin 4.1 (3.5-5.1) g/dL Lipase 143 (23-300) U/L TSH (Reflex) 6.040 H (0.465-4.68) uIU/mL Free T4 1.28 (0.78-2.19) ng/dL Total T3 Pending Imaging Data Attestation: I personally reviewed and interpreted this imaging study as follows: ECG Data EKG #1: Attestation: I personally reviewed and interpreted this ECG as follows: ECG completion date: 07/06/25 ECG completion time: 00:33 EKG Interpretation: normal rate (77), sinus rhythm, no ST changes and other (Low voltage) Discharge Plan Discharge Clinical Impression: Palpitations, Elevated TSH Patient Disposition: Home Condition: Stable Instructions: Antibiotic Form, Heart Palpitations (ED), Hypothyroidism (ED) Additional Instructions: Your workup here was reassuring. Continue to monitor symptoms. Stay well hydrated. Your TSH was slightly elevated here, however your T4 (thyroid hormone) was within the normal range. Recommend close follow-up with your primary care doctor for further evaluation of this. This may be contributing to your palpitations. I have placed an order for you to receive a Holter (heart event) monitor. You may follow-up with your primary care doctor and/or cardiology for this. Return to ED if you experience worsening or severe palpitations, chest pain, difficulty breathing, pain or swelling in your legs, unable to keep down food or drink, severe dizziness or lightheadedness, passing out, or any other symptoms of concern. Patient Language: Amharic Prescriptions: No Action nystatin 100,000 unit/mL suspension 5 ml PO QID 7 Days Qty: 150 0RF Rx Instructions: swish and swallow Other Ambulatory Orders: CA holter monitor 3-7 day (Routine) Timeframe: 1 Week Location: Determined by Patient Ordered By: Yolanda Bourne Follow-up/Referrals: Hung Wiggins MD [Physician, Cardiology] Referral Note: CARDIOLOGY UNKNOWN,DOCTOR [Primary Care Provider] Time of Disposition: 02:12
[2025-07-06 01:31] LABS: Thyroid Stimulating Hormone Reflex 6.040 uIU/mL (0.465-4.68)
[2025-07-06 02:03] LABS: Lipase 143 U/L (23-300)
[2025-07-06 02:06] LABS: Free T4 Free Thyroxine Reflex 1.28 ng/dL (0.78-2.19)
[2025-07-06 02:27] VITALS: BP 105/67; PULSE 87; RESP 16; O2SAT 97
[2025-07-06 03:02] LABS: Total Triiodothyronine (T3) 1.19 NG/ML (0.82-1.58)
== END 2025-07-06 02:29 | disposition home or self-care (01) ==
PROVIDERS: Emergency Provider Physician Assistant
DX: R00.2 Palpitations (principal); R94.6 Abnormal results of thyroid function studies; K21.9 Gastro-esophageal reflux disease without esophagitis; R94.31 Abnormal electrocardiogram [ECG] [EKG]
CPT/HCPCS: 36415; 71046; 80053; 83690; 83735; 84439; 84443; 84480; 84484; 85025; 85380; 85610; 85730; 93005; 96374; 99284; A9270; J2405